=== PATIENT | female | born 1970 | race African-American/Black ===

== ENCOUNTER 2022-09-25 10:30 | Emergency (ER) | payer OTHER, MEDICAID, SELFPAY ==
[2022-09-25 10:41] VITALS: BP 115/76; PULSE 79; RESP 16; TEMP 36.2; O2SAT 96; BMI 25.8
--- NOTE | 2022-09-25 11:15 | CRLHL7_ITS ---
For Patients: As a result of the Century Cures Act, medical imaging exams and procedure reports are released immediately into your electronic medical record. You may view this report before your referring provider. If you have questions, please contact your health care provider. INDICATION: Abdomen pain. TECHNIQUE: CT abdomen and pelvis acquired with 83 mL Isovue 370 contrast. COMPARISON: CT abdomen/pelvis dated 09/12/2018. FINDINGS: Lower chest: No focal consolidation. Liver: No suspicious focal hepatic lesion. Gallbladder and bile ducts: Unremarkable. Pancreas: Unremarkable. Spleen: Unremarkable. Adrenal glands: Unremarkable. Kidneys: Kidneys enhance symmetrically, without hydronephrosis. Retroperitoneum: No lymphadenopathy. Bowel and mesentery: Bowel is not obstructed. Normal appendix. No significant ascites. Mild pericolonic inflammatory changes at the proximal sigmoid colon, compatible with mild colitis. Stomach is decompressed, suboptimally evaluated. No pneumoperitoneum. Bladder: Unremarkable for degree of distension. Reproductive organs: Intrauterine contraceptive device is noted. Pelvic lymph nodes: No lymphadenopathy. Vessels: Few scattered atherosclerotic calcifications. Abdominal wall: Postsurgical changes of prior ventral abdominal wall hernia repair. No acute abdominal wall abnormality. Bones: No suspicious/aggressive focal osseous lesion. IMPRESSION: 1. Mild short-segment colitis of the proximal sigmoid colon. 2. Bowel is not obstructed. Normal appendix. Please note that all CT scans at this facility use dose modulation, iterative reconstruction, and/or weight-based dosing when appropriate to reduce radiation dose to as low as reasonably achievable. Dictated by Kiesha Luciano MD @ 09/25/2022 1:38:02 PM (Electronically Signed)
--- NOTE | 2022-09-25 11:16 | ED_ITS ---
HPI - Abdominal Pain General Chief Complaint: Abdominal Pain Stated Complaint: Abdominal pain Time Seen by Provider: 09/25/22 10:51 History of Present Illness HPI narrative: This 51-year-old female comes in reporting abdominal pain that began this morning. She states that the pain comes and goes. She does not report any nausea, vomiting, fever, or dysuria. She did have small amount of diarrhea. 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 Related Data Home Medications Medication Instructions Recorded Confirmed albuterol sulfate 90 mcg/actuation 1 puff inhalation Q4H PRN 09/25/22 09/25/22 aerosol inhaler aripiprazole 2 mg tablet 2 mg PO DAILY 09/25/22 09/25/22 venlafaxine 150 mg 150 mg PO DAILY 09/25/22 09/25/22 capsule,extended release 24 hr Previous Rx's Medication Instructions Recorded ketorolac 10 mg tablet 10 mg PO Q8H 5 days #15 tabs 09/25/22 ondansetron HCl 4 mg tablet 4 mg PO Q6H #10 tabs 09/25/22 Allergies Allergy/AdvReac Type Severity Reaction Status Date / Time No Known Drug Allergies Allergy Verified 09/25/22 10:47 Review of Systems Status of ROS Reports: 10 or more systems reviewed and unremarkable except as noted in History and below Narrative Constitutional: No fevers, no weight gain or loss. Eyes: No discharge. No vision changes. HENT: No congestion, no sore throat, no ear pain. Cardiovascular: No chest pain, no palpitations. Respiratory: No shortness of breath, no wheezes, no cough. Gastrointestinal: No vomiting. Crampy abdominal pain as described above. Genitourinary: No dysuria, no hematuria. Musculoskeletal: Normal range of motion. Skin: No rashes, no pruritis. Neurological: No dizziness, weakness, sensory change, speech change. Endo/Heme/Allergies: No bruising or bleeding. No polydipsia. Pysch: no suicidality, no anxiety, no insomnia. All other systems reviewed and are negative. PFSH PFSH Social History Smoking Status: Never smoker Do you use any of these nicotine containing products: None Second hand tobacco smoke exposure: No How often do you have a drink containing alcohol: never How often do you have six or more drinks on one occasion: Never AUDIT-C Alcohol total score: 0 Non-prescribed substance use: denies use service: No Exam Narrative: Exam Narrative: Constitutional: Well-developed, well-nourished, no acute distress. HEENT: Normocephalic, atraumatic. Neck: Normal range of motion. Nontender. Supple. Heart: Regular. No murmurs. Normal rate. Intact distal pulses. Lungs: No chest discomfort. No rhonchi, or rales. Brief end expiratory wheeze in the right lung. Abdomen: Normal bowel sounds. Diffuse mild tenderness. No rebound tenderness. Genitalia: Deferred. Back: No midline tenderness. Normal range of motion. Extremities: Normal range of motion. No injury. Skin: Intact. No rash. Warm. No erythema or pallor. Neurologic: No altered sensation. No weakness. Alert and oriented. Psychiatric: No suicidality. No anxiety or depression. No insomnia. Nursing notes and vitals signs are reviewed. Const: Vital Signs, click to edit/add: Vital Signs - 24 hr 09/25/22 10:41 Temperature 97.2 F L Pulse Rate [Left P ulse Oximeter] 79 Respiratory Rate 16 Blood Pressure [Le ft Upper Arm] 115/76 Pulse Oximetry 96 Oxygen Delivery Me thod Room Air Course Vital Signs Vital signs: Initial Vital Signs Temperature 97.2 F L 09/25/22 10:41 Temperature Source Temporal Artery Scan 09/25/22 10:41 Pulse Rate 79 09/25/22 10:41 Respiratory Rate 16 09/25/22 10:41 Blood Pressure 115/76 09/25/22 10:41 Blood Pressure Mean 89 09/25/22 10:41 Blood Pressure Position Sitting 09/25/22 10:41 Pulse Oximetry 96 09/25/22 10:41 Oxygen Delivery Method 09/25/22 10:41 Vital Signs Temperature 97.2 F L 09/25/22 10:41 Pulse Rate 79 09/25/22 10:41 Respiratory Rate 16 09/25/22 10:41 Blood Pressure 115/76 09/25/22 10:41 Pulse Oximetry 96 09/25/22 10:41 Oxygen Delivery Method 09/25/22 10:41 Temperature 97.2 F L 09/25/22 10:41 Pulse Rate 79 09/25/22 10:41 Respiratory Rate 16 09/25/22 10:41 Blood Pressure 115/76 09/25/22 10:41 Pulse Oximetry 96 09/25/22 10:41 Oxygen Delivery Method 09/25/22 10:41 MDM - Abdominal Pain MDM Narrative Medical decision making narrative: This patient comes in with crampy mid abdominal pain that began this morning. She does have some nausea. Currently she is not having episodes of pain. She reports to me that her mother had colon cancer so she is getting colonoscopies regularly as indicated. These have been negative in their results. This however is triggering some of her fear regarding her symptoms. CT imaging of the abdomen and pelvis returns with reassuring findings. She does have some audra dence of mild colitis in the sigmoid colon. Results of the imaging and lab tests are communicated with the patient and she is reassured with these findings. She is okay to be discharged home and received a prescription for Toradol and Zofran. I advised her to follow-up with her primary physician as needed or return if worsening. Lab Data Labs: Lab Results 09/25/22 09/25/22 Range/Units 11:26 11:26 WBC 5.64 (4.50-11.00) K/uL RBC 4.07 (4.00-5.20) m/uL Hgb 12.8 (12.0-16.0) gm/dL Hct 39.5 (33.0-51.0) % MCV 97 (80-100) fL MCH 31 (26-34) pg MCHC 32 (32-36) gm/dL RDW Coeff of Dara 15.2 (11.5-15.5) % Plt Count 295 (140-440) K/uL Neut % (Auto) 65.0 (42.0-72.0) % Lymph % (Auto) 23.6 (20-44) % Mcclain % (Auto) 9.4 (0.0-11.0) % Eos % (Auto) 1.6 (0.0-7.0) % Baso % (Auto) 0.4 (0.0-3.0) % Neut # (Auto) 3.67 (1.7-7.0) K/uL Lymph # (Auto) 1.33 (0.90-2.90) K/uL Mcclain # (Auto) 0.50 (0.00-0.90) K/UL Eos # (Auto) 0.09 (0.00-0.50) K/uL Baso # (Auto) 0.02 (0.00-0.30) K/uL Sodium 139 (135-149) mmol/L Potassium 4.1 (3.6-5.1) mmol/L Chloride 106 (96-114) mmol/L Carbon Dioxide 33 H (20-32) mmol/L BUN 13 (7-30) mg/dL Creatinine 0.6 (0.5-1.5) mg/dL Estimated Creat Clear 113.16 Estimated GFR 109 ml/min Glucose 109 (60-115) mg/dL Calcium 8.9 (8.4-10.6) mg/dL Imaging Data CT scan - abdomen: Radiologist's impression: 1. Mild short-segment colitis of the proximal sigmoid colon. 2. Bowel is not obstructed. Normal appendix. Discharge Plan Discharge Clinical Impression: Abdominal pain Patient Disposition: Home, Self-Care Condition: Stable Additional Instructions: Take medication as needed and indicated. Follow up with MD or return if worsening symptoms happen. Prescriptions: New ondansetron HCl 4 mg tablet 4 mg PO Q6H Qty: 10 0RF ketorolac 10 mg tablet 10 mg PO Q8H 5 Days Qty: 15 0RF No Action albuterol sulfate 90 mcg/actuation HFA aerosol inhaler 1 puff INHALATION Q4H PRN Label Comments: Inhale 1-2 Puffs by mouth every 4 hours if needed for Shortness Of Breath. aripiprazole 2 mg tablet 2 mg PO DAILY Label Comments: TAKE ONE TABLET BY MOUTH ONE TIME DAILY venlafaxine 150 mg capsule,extended release 24hr 150 mg PO DAILY Label Comments: TAKE ONE CAPSULE BY MOUTH ONE TIME DAILY IN THE EVENING WITH FOOD Follow Up/Referrals: Renetta Geller MD [Primary Care Provider] - Stand Alone Forms: [employer] Info Instructions
[2022-09-25 11:31] LABS: Basophils Absolute Auto 0.02 K/uL (0.00-0.30); Basophils Percent Auto 0.4 % (0.0-3.0); Eosinophils Absolute Auto 0.09 K/uL (0.00-0.50); Eosinophils Percent Auto 1.6 % (0.0-7.0); Hematocrit 39.5 % (33.0-51.0); Hemoglobin* 12.8 gm/dL (12.0-16.0); Lymphocytes Absolute Auto 1.33 K/uL (0.90-2.90); Lymphocytes Percent Auto 23.6 % (20-44); Mean Corpuscular HGB Conc 32 gm/dL (32-36); Mean Corpuscular Hemoglobin 31 pg (26-34); Mean Corpuscular Volume 97 fL (80-100); Monocytes Percent Auto 9.4 % (0.0-11.0); Neutrophils Absolute Auto 3.67 K/uL (1.7-7.0); Platelet Count* 295 K/uL (140-440); RDW Coefficient of Variation % 15.2 % (11.5-15.5); Red Blood Count 4.07 m/uL (4.00-5.20); White Blood Count* 5.64 K/uL (4.50-11.00)
[2022-09-25 11:32] LABS: Slide Review Reflex No
[2022-09-25 11:46] LABS: Chloride* 106 mmol/L (96-114); Potassium* 4.1 mmol/L (3.6-5.1); Sodium* 139 mmol/L (135-149)
[2022-09-25 11:49] LABS: Blood Urea Nitrogen* 13 mg/dL (7-30); Carbon Dioxide* 33 mmol/L (20-32); Creatinine* 0.6 mg/dL (0.5-1.5); Est. Creatinine Clearance* 113.16; Estimated Glomerular Filt Rate 109 ml/min; Glucose* 109 mg/dL (60-115)
[2022-09-25 11:50] LABS: Calcium* 8.9 mg/dL (8.4-10.6)
[2022-09-25 14:10] VITALS: BP 126/94; PULSE 68; RESP 16; O2SAT 100
== END 2022-09-25 14:11 | disposition home or self-care (01) ==
PROVIDERS: Emergency Provider Emergency Medicine Emergency Medical Services; PCP Family Medicine
DX: R10.9 Unspecified abdominal pain (principal)
CPT/HCPCS: 36415; 74177; 80048; 85025; 99284; Q9967

== ENCOUNTER 2023-07-17 09:58 | Emergency (ER) | payer OTHER, MEDICAID, SELFPAY ==
[2023-07-17 10:16] VITALS: BP 132/80; PULSE 74; RESP 16; TEMP 36.5; O2SAT 99; BMI 24.3
--- NOTE | 2023-07-17 12:06 | ED.GENADULT ---
HPI - General Adult General Chief complaint: Skin/Abscess/Foreign Body Stated complaint: poss shingles Time Seen by Provider: 07/17/23 11:40 History of Present Illness HPI narrative: This 52-year-old female comes in with some erythema with pain along her left side that began a couple days ago. She does have a rash that runs along the dermatome of her left lower ribs. She does not report any other symptoms. She has not had a previous outbreak of shingles but did have chickenpox when she was younger. Related Data Home Medications Medication Instructions Recorded Confirmed albuterol sulfate 90 mcg/actuation 1 puff inhalation Q4H PRN 09/25/22 12/21/22 aerosol inhaler aripiprazole 2 mg tablet 2 mg PO DAILY 09/25/22 12/21/22 venlafaxine 150 mg 150 mg PO DAILY 09/25/22 07/17/23 capsule,extended release 24 hr Previous Rx's Medication Instructions Recorded ketorolac 10 mg tablet 10 mg PO Q8H 5 days #15 tabs 09/25/22 ondansetron HCl 4 mg tablet 4 mg PO Q6H #10 tabs 09/25/22 ketorolac 10 mg tablet 10 mg PO Q8H 5 days #15 tabs 07/17/23 polymyxin B sulfate 10,000 1 drp ophthalmic (eye) Q3H 7 days 07/17/23 unit-trimethoprim 1 mg/mL eye drops #10 mL valacyclovir 1 gram tablet 1,000 mg PO TID #15 tabs 07/17/23 (Valtrex) Allergies Allergy/AdvReac Type Severity Reaction Status Date / Time No Known Drug Allergies Allergy Verified 09/25/22 10:47 Review of Systems Status of ROS: Reports: 10 or more systems reviewed and unremarkable except as noted in History and below Narrative: Constitutional: No fevers, no weight gain or loss. Eyes: No vision changes. She reports discharge from both eyes this morning. HENT: No congestion, no sore throat, no ear pain. Cardiovascular: No chest pain, no palpitations. Respiratory: No shortness of breath, no wheezes, no cough. Gastrointestinal: No abdominal pain, no vomiting, no diarrhea. Genitourinary: No dysuria, no hematuria. Musculoskeletal: Normal range of motion. Skin: Itchy painful rash along the left lower ribs as described above. Neurological: No dizziness, weakness, sensory change, speech change. Endo/Heme/Allergies: No bruising or bleeding. No polydipsia. Pysch: no suicidality, no anxiety, no insomnia. All other systems reviewed and are negative. [facility] Social History Smoking Status: Never smoker Do you use any of these nicotine containing products: None Second hand tobacco smoke exposure: No How often do you have a drink containing alcohol: never How often do you have six or more drinks on one occasion: Never AUDIT-C Alcohol total score: 0 Non-prescribed substance use: denies use service: No Exam Narrative: Exam Narrative: Constitutional: Well-developed, well-nourished, no acute distress. HEENT: Normocephalic, atraumatic. Eyes appear normal bilaterally. Neck: Normal range of motion. Nontender. Supple. Heart: Regular. No murmurs. Normal rate. Intact distal pulses. Lungs: Clear to auscultation. No chest discomfort. No wheezes, rhonchi, or rales. Abdomen: Normal bowel sounds. Nontender. No rebound tenderness. Genitalia: Deferred. Back: No midline tenderness. Normal range of motion. Extremities: Normal range of motion. No injury. Skin: Intact. Warm. Erythema extending from her back at the midline around the lower ribs almost to the midline in front typical of shingles. There are no vesicles but it does appear that some a form in the future. Neurologic: No altered sensation. No weakness. Alert and oriented. Psychiatric: No suicidality. No anxiety or depression. No insomnia. Nursing notes and vitals signs are reviewed. Const: Vital Signs, click to edit/add: Vital Signs - 24 hr 07/17/23 10:16 Temperature 97.7 F Pulse Rate [Pulse Oximeter] 74 Respiratory Rate 16 Blood Pressure [Le ft Upper Arm] 132/80 Pulse Oximetry 99 Oxygen Delivery Me thod Room Air Course Vital Signs Vital signs: Initial Vital Signs Temperature 97.7 F 07/17/23 10:16 Temperature Source Temporal Artery Scan 07/17/23 10:16 Pulse Rate 74 07/17/23 10:16 Respiratory Rate 16 07/17/23 10:16 Blood Pressure 132/80 07/17/23 10:16 Blood Pressure Mean 97 07/17/23 10:16 Blood Pressure Position Sitting 07/17/23 10:16 Pulse Oximetry 99 07/17/23 10:16 Oxygen Delivery Method Room Air 07/17/23 10:16 Vital Signs Temperature 97.7 F 07/17/23 10:16 Pulse Rate 74 07/17/23 10:16 Respiratory Rate 16 07/17/23 10:16 Blood Pressure 132/80 07/17/23 10:16 Pulse Oximetry 99 07/17/23 10:16 Oxygen Delivery Method Room Air 07/17/23 10:16 Temperature 97.7 F 07/17/23 10:16 Pulse Rate 74 07/17/23 10:16 Respiratory Rate 16 07/17/23 10:16 Blood Pressure 132/80 07/17/23 10:16 Pulse Oximetry 99 07/17/23 10:16 Oxygen Delivery Method Room Air 07/17/23 10:16 Medical Decision Making MDM Narrative Medical decision making narrative: This 52-year-old female comes in with symptoms typical of shingles. Her symptoms started about 2 days ago. She did received prescription for Valtrex and Toradol. She is also reporting matting in discharge from both her eyes this morning. I did provide a prescription for Polytrim. Currently her eyes are not showing any sign of discharge or erythema. Discharge Plan Discharge Additional Instructions: Take medications as prescribed. Follow up with MD or return if worsening. Prescriptions: New valacyclovir [Valtrex] 1 gram tablet 1,000 mg PO TID Qty: 15 2RF ketorolac 10 mg tablet 10 mg PO Q8H 5 Days Qty: 15 0RF polymyxin B sulf-trimethoprim 10,000 unit- 1 mg/mL drops 1 drp ophthalmic (eye) Q3H 7 Days Qty: 10 0RF Rx Instructions: while awake; do not exceed 6 doses in 24 hours No Action albuterol sulfate 90 mcg/actuation HFA aerosol inhaler 1 puff INHALATION Q4H PRN Patient Comments: Inhale 1-2 Puffs by mouth every 4 hours if needed for Shortness Of Breath. aripiprazole 2 mg tablet 2 mg PO DAILY Patient Comments: TAKE ONE TABLET BY MOUTH ONE TIME DAILY venlafaxine 150 mg capsule,extended release 24hr 150 mg PO DAILY Patient Comments: TAKE ONE CAPSULE BY MOUTH ONE TIME DAILY IN THE EVENING WITH FOOD ondansetron HCl 4 mg tablet 4 mg PO Q6H Qty: 10 0RF ketorolac 10 mg tablet 10 mg PO Q8H 5 Days Qty: 15 0RF Follow Up/Referrals: Renetta Geller MD [Primary Care Provider] - Stand Alone Forms: [employer] Info Instructions
[2023-07-17 12:27] VITALS: BP 133/90; PULSE 73; O2SAT 98
== END 2023-07-17 12:33 | disposition home or self-care (01) ==
LOC: ED 12:07
PROVIDERS: Emergency Provider Emergency Medicine Emergency Medical Services; PCP Family Medicine
DX: B02.9 Zoster without complications (principal)
CPT/HCPCS: 99283; 99284

== ENCOUNTER 2023-09-15 12:44 | Emergency (ER) | payer OTHER, MEDICAID, SELFPAY ==
[2023-09-15 12:50] VITALS: BP 127/86; PULSE 99; RESP 16; TEMP 36.7; O2SAT 98; BMI 24.3
--- NOTE | 2023-09-15 13:32 | XR_ITS ---
Patient: AVELINA CARD Facility:?[facility] Patient ID:?[id number] Site Patient ID:?[id number]. Site :?[id number] Study:?XRay-Extremity Right Wrist 3v-09/15/2023 1:57:13 PM Ordering Physician:?Marck Barnes Final Report: Indication: Fall onto wrist, can not bend Technique: AP lateral and oblique right wrist, three views Comparison: None Findings: No fracture or acute dislocation. Wide scapholunate interval measures 5 millimeters. Slightly oblique lateral view. There may be some minimal proximal migration of the capitate but there is not a carmenza scapholunate advanced collapse or DISI deformity. There are several well circumscribed lucent lesions in the carpal bones that are probably intraosseous ganglia. 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 Soft tissue swelling around the wrist. No foreign body. 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 No definitely acute findings seen in the right wrist. Dictated by Katey Stanley MD @ 09/15/2023 2:10:48 PM Signed by:?Katey Stanley MD @09/15/2023 2:10:48 PM (Electronic Signature)
--- NOTE | 2023-09-15 14:35 | ED.UPPEXIN ---
HPI - Extremity Injury (Upper) General Date Seen: 09/15/23 Chief Complaint: Extremity Pain/Injury, Upper Stated Complaint: R wrist break Time Seen by Provider: 09/15/23 13:13 Source: patient Mode of arrival: ambulatory Limitations: no limitations History of Present Illness HPI narrative: Patient is a 52-year-old female presenting for right wrist pain. She states yesterday she tripped over dog leash landing on her right hand. She said it was sore or was tolerable. Today she woke up and noticed the pain was worse and she has pain with movement of the hand. Denies any numbness or weakness low. She cannot make a full fist due to pain but is able to wiggle her fingers without issues. Has not taking anything for pain. She says the pain is tolerable and to not feel like she needed anything. Denies injuries to this hand before. No other concerns at this time Related Data Home Medications Medication Instructions Recorded Confirmed albuterol sulfate 90 mcg/actuation 1 puff inhalation Q4H PRN 09/25/22 12/21/22 aerosol inhaler aripiprazole 2 mg tablet 2 mg PO DAILY 09/25/22 12/21/22 venlafaxine 150 mg 150 mg PO DAILY 09/25/22 07/17/23 capsule,extended release 24 hr Previous Rx's Medication Instructions Recorded ketorolac 10 mg tablet 10 mg PO Q8H 5 days #15 tabs 09/25/22 ondansetron HCl 4 mg tablet 4 mg PO Q6H #10 tabs 09/25/22 ketorolac 10 mg tablet 10 mg PO Q8H 5 days #15 tabs 07/17/23 polymyxin B sulfate 10,000 1 drp ophthalmic (eye) Q3H 7 days 07/17/23 unit-trimethoprim 1 mg/mL eye drops #10 mL valacyclovir 1 gram tablet 1,000 mg PO TID #15 tabs 07/17/23 (Valtrex) Allergies Allergy/AdvReac Type Severity Reaction Status Date / Time No Known Drug Allergies Allergy Verified 09/15/23 12:55 Review of Systems Narrative: Pertinent systems reviewed and were negative unless stated in HPI PFSH PFSH Social History Smoking Status: Never smoker Do you use any of these nicotine containing products: None Second hand tobacco smoke exposure: No How often do you have a drink containing alcohol: never How often do you have six or more drinks on one occasion: Never AUDIT-C Alcohol total score: 0 Non-prescribed substance use: denies use service: No Exam Narrative: Exam Narrative: Const: Well-nourished, Well-developed, in mild distress Eyes: PERRL, no conjunctival injection, and symmetrical lids HENT: Atraumatic external nose and ears. Moist mucous membranes. MSK: Swelling to right hand tenderness to palpation, mild decreased movement to right hand secondary to pain, able to wiggle fingers without issue but cannot make a tight fist Skin: Warm, Dry. No rashes or lesions. Neuro: Normal Muscle tone, No focal neurological deficits. Psych: Awake, Alert, & Oriented x3. Appropriate mood and affect. Const: Vital Signs, click to edit/add: Vital Signs - 24 hr 09/15/23 12:50 Temperature 98.0 F Pulse Rate [Right Pulse Oximeter] 99 Respiratory Rate 16 Blood Pressure [Ri ght Upper Arm] 127/86 Pulse Oximetry 98 Oxygen Delivery Me thod Room Air Course Vital Signs Vital signs: Initial Vital Signs Temperature 98.0 F 09/15/23 12:50 Temperature Source Temporal Artery Scan 09/15/23 12:50 Pulse Rate 99 09/15/23 12:50 Pulse Rhythm Regular 09/15/23 12:50 Pulse Strength 3+ Normal 09/15/23 12:50 Respiratory Rate 16 09/15/23 12:50 Blood Pressure 127/86 09/15/23 12:50 Blood Pressure Mean 99 09/15/23 12:50 Blood Pressure Position Sitting 09/15/23 12:50 Pulse Oximetry 98 09/15/23 12:50 Oxygen Delivery Method Room Air 09/15/23 12:50 Vital Signs Temperature 98.0 F 09/15/23 12:50 Pulse Rate 99 09/15/23 12:50 Respiratory Rate 16 09/15/23 12:50 Blood Pressure 127/86 09/15/23 12:50 Pulse Oximetry 98 09/15/23 12:50 Oxygen Delivery Method Room Air 09/15/23 12:50 Temperature 98.0 F 09/15/23 12:50 Pulse Rate 99 09/15/23 12:50 Respiratory Rate 16 09/15/23 12:50 Blood Pressure 127/86 09/15/23 12:50 Pulse Oximetry 98 09/15/23 12:50 Oxygen Delivery Method Room Air 09/15/23 12:50 MDM - Extremity Injury (Upper) MDM Narrative Medical decision making narrative: Patient is a 52-year-old female presenting for right wrist pain. She is neurovascular intact at this time. She has tenderness at the anatomical snuffbox. We will do an x-ray of the right wrist. She is not requesting pain medicine at this time. X-ray reviewed and shows some widened scapholunate junction that is likely secondary to a chronic scapholunate tear. Considering where her pain is I will place her in a thumb spica splint and have a follow-up with Orthopedics as I cannot definitively rule out a scaphoid fracture.. She is agreeable to this plan. 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 No definitely acute findings seen in the right wrist. Dictated by Katey Stanley MD @ 09/15/2023 2:10:48 PM Discharge Plan Discharge Clinical Impression: Right wrist pain Patient Disposition: Home, Self-Care Condition: Stable Instructions: Wrist Injury (ED) Additional Instructions: No fractures were seen on your x-ray but I cannot definitively rule out a fracture of your scaphoid bone of your wrist. I placed you in a thumb spica splint. Follow-up with orthopedics in 1 week for re-evaluation of the wrist. Prescriptions: No Action albuterol sulfate 90 mcg/actuation HFA aerosol inhaler 1 puff INHALATION Q4H PRN Patient Comments: Inhale 1-2 Puffs by mouth every 4 hours if needed for Shortness Of Breath. aripiprazole 2 mg tablet 2 mg PO DAILY Patient Comments: TAKE ONE TABLET BY MOUTH ONE TIME DAILY venlafaxine 150 mg capsule,extended release 24hr 150 mg PO DAILY Patient Comments: TAKE ONE CAPSULE BY MOUTH ONE TIME DAILY IN THE EVENING WITH FOOD ondansetron HCl 4 mg tablet 4 mg PO Q6H Qty: 10 0RF ketorolac 10 mg tablet 10 mg PO Q8H 5 Days Qty: 15 0RF valacyclovir [Valtrex] 1 gram tablet 1,000 mg PO TID Qty: 15 2RF ketorolac 10 mg tablet 10 mg PO Q8H 5 Days Qty: 15 0RF polymyxin B sulf-trimethoprim 10,000 unit- 1 mg/mL drops 1 drp ophthalmic (eye) Q3H 7 Days Qty: 10 0RF Rx Instructions: while awake; do not exceed 6 doses in 24 hours Follow Up/Referrals: Renetta Geller MD [Primary Care Provider] - Stand Alone Forms: [employer] Info Instructions
== END 2023-09-15 14:42 | disposition home or self-care (01) ==
PROVIDERS: Emergency Provider Student in an Organized Health Care Education/Training Program; PCP Family Medicine
DX: M25.531 Pain in right wrist (principal)
CPT/HCPCS: 73110; 99282; 99283

== ENCOUNTER 2024-11-09 11:40 | Emergency (ER) | payer OTHER, MEDICAID, SELFPAY ==
--- OUTSIDE RECORDS SUMMARY | 2024-11-09 11:43 | XMS_ITS | Encounter Summary ---
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 Name Role Phone No Primary/Referring, Phy Primary Care Provider Unavailable Encounter Details Date Type Department Care Team (Late st Contact Info) Description 05/05/2019 Consent for Procedure/Treatme nt [facility] INFORMED CONSENT NEUROLEPTIC MEDICATIONS Social History Tobacco Use Types Packs/Day Years Used Date Smoking Tobacco: Never Assessed Comments Unknown Sex and Gender Information Value Date Recorded Sex Assigned at Not on file Legal Sex Female 8:37 PM CDT Gender Identity Not on file Sexual Orientation Not on file documented as of this encounter Plan of Treatment Not on file documented as of this encounter Visit Diagnoses Not on filedocumented in this encounter Care Teams Textiles And Clothing Teacher Relationship Specialty Start Date End Date No Primary/ReferringMohit PCP - General 05/05/19 documented as of this encounter
--- OUTSIDE RECORDS SUMMARY | 2024-11-09 11:43 | XMS_ITS | Encounter Summary ---
Author Organization [facility] Address [address] [place] [address] Care Team Providers Care Laboratory Animal Facility Supervisor Name Role Phone No Primary/Referring, Phy Primary Care Provider Unavailable Encounter Details Date Type Department Care Team (Late st Contact Info) Description 06/04/2019 [facility] RH USE OF RESTRAINTS/ALTERNATIVES PATIENT/FAMILY ED Social History Tobacco Use Types Packs/Day Years Used Date Smoking Tobacco: Every Day Smokeless Tobacco: Never Comments Unknown Sex and Gender Information Value Date Recorded Sex Assigned at Not on file Legal Sex Female 8:37 PM CDT Gender Identity Not on file Sexual Orientation Not on file documented as of this encounter Plan of Treatment Not on file documented as of this encounter Visit Diagnoses Not on filedocumented in this encounter Care Teams Laboratory Animal Facility Supervisor Relationship Specialty Start Date End Date No Primary/ReferringMohit PCP - General 05/05/19 documented as of this encounter
--- OUTSIDE RECORDS SUMMARY | 2024-11-09 11:43 | XMS_ITS | Clinical Summary ---
Author Organization [employer] [facility] Address [address] [place] [address] Care Team Providers Care Digitizer Name Role Phone Renetta Geller MD Primary Care Provide r Allergies No known active allergies Medications inhalational spacing deviceIndication s:Acute bronchitis with bronchospasm For home use. 1 Each 3 Active albuterol HFA (PRO-AIR; VENTOLIN; PROVENTIL) 90 mcg/actuation inhalerIndicatio ns:Acute bronchitis with bronchospasm Inhale 1 Puff by mouth every 4 hours if needed for Shortness Of Breath or Wheezing. 8.5 g 1 4 Active venlafaxine (EFFEXOR XR) 150 mg Extended-Release capsuleIndicatio ns:Major depressive disorder, recurrent, moderate (HC) TAKE ONE CAPSULE BY MOUTH ONE TIME DAILY IN THE EVENING WITH FOOD 90 Capsule 5 Active azithromycin (Zithromax Z-Reji) 250 mg tabletIndication s:Acute bronchitis with bronchospasm Take 500 mg (2 tabs) by mouth on day 1, then 250 mg (1 tab) daily for days 2-5. 6 Tablet 4 11/07/19 25 Discontin ued(*Rosa ent states no longer taking) Hospital, Clinic, or Other Facility Administered Medication Ordered Dose Route Frequency Start Date End Date Status levonorgestrel intrauterine device (MIRENA) 1 DeviceIndications:Encounter for IUD insertion 1 Device IU Q 5 YEARS 09/26/2019 Active Active Problems Problem Noted Date Diagnosed Date Mass of right upper extremity 03/12/2024 Overview (03/12/2024): Ultrasound 03/12/24 Suspected small superficial soft tissue hematoma measures up to 5 mm. Continued attention to this on clinical and imaging follow-up would be recommended, as indicated. Ventral hernia without obstruction or gangrene 0 11/01/2021 Alcohol abuse, episodic drinking behavior 2020 Adenomatous colon polyp 10/02/2018 Overview (11/01/2021): Colonoscopy 09/2018 polyp, repeat in 5 years Colonoscopy 09/2018 polyp, repeat in 5 years At risk for domestic violence 11/16/2016 Cervical radicular pain 12/22/2014 Prolonged depressive reaction 03/12/2014 Family history of malignant neoplasm of gastrointestinal tract 11/21/2012 Overview (11/01/2021): Mother with colon cancer at age 70 Colonoscopy 11/2012 normal repeat in 5 years Mother with colon cancer at age 70 Colonoscopy 11/2012 normal repeat in 5 years Tobacco use disorder 11/25/2009 Generalized anxiety disorder Moderate episode of recurrent major depressive d isorder Gastritis Polyp of colon Resolved Problems Problem Noted Date Diagnosed Date Resolved Date Borderline personality disorder 01/30/2021 10/12/2022 Encounters Date Type Department Care Team Description 11/09/2024 Nurse Triage [facility] [address] [place] [address] Renetta Geller MD Knee Injury 11/07/2024 1:00 PM CDT Ancillary Procedure [facility] [address] [place] [address] Arrived 11/07/2024 Travel 11/06/2024 2:30 PM CDT Telemedicine [facility] [address] [phone] Jil De Luna NP Telehealth; Knee Injury 09/26/2024 Orders Only [facility] Scanner 1 scan: (1-Ord) [facility] 08/12/2024 Refill [facility] [address] [place] [address] Renetta Geller MD Refill Request (Venlafaxine) from Last 3 Months Immunizations Immunization Administration Dates Next Due AMB Influenza, IIV3 (Age >=3 years)(Flu Clinic Only) 06/05/2008 AMB Influenza, IIV4 PF (=>6 mos Flulaval,Fluzone Fluarix)(Flu Clinic Only) 05/10/2018,07/01/2014 COVID-19 VACCINE SPIKEVAX (M ODERNA 50MCG/0.5ML) 12YO+ PFS 07/14/2024,09/17/2023 COVID-19 vaccine (Moderna 100mcg/0.5mL) PF, MDV 12/08/2020,11/10/2020 COVID-19 vaccine (Moderna Drew karuna 50mcg/0.25mL) PF, MDV 08/18/2021 COVID-19 vaccine (MagazinoBio NTech 30mcg/0.3mL) 12YO+ BIVALENT PF, MDV 04/28/2022 INFLUENZA, IIV3 PF (AGE >= 6 MO) 07/14/2024 Influenza, IIV3 (Age >=3 years) 06/03/2012,07/01 Influenza, IIV4 09/17/2023,,10/01/2020,2018,06/26/2017,06/30/2015 MMR 11/29/2010 Pneumococcal Conj 20-valent (Prevnar 20) 09/17/2023 Td (Age >=7 Years) 04/06/2004 Tdap 02/17/2021,11/29/2010 Family History Medical History Relation Name Comments Cancer-prostate Father Cancer-colon Mother age 75 Esophageal cancer Paternal Uncle Cervical cancer Sister Cancer-breast No Family History Cancer-ovarian No Family History Relation Name Status Comments Father Mother Paternal Uncle Alive Sister Social History Tobacco Use Types Packs/Day Years Used Date Smoking Tobacco: Every Day Cigarettes 0.5 6.3 Started: 2018 Smokeless Tobacco: Never Tobacco Cessation:Ready to Q uit: No; Counseling Given: No Comments:10 cigs per day Alcohol Use Standard Drinks/Week Comments Yes 0 (1 standard drink = 0.6 oz pur e alcohol) 4-5 a week PHQ-2 Answer Date Recorded PHQ-2 TOTAL SCORE 2 08/10/2023 Social Connections Answer Date Recorded Do you often feel lonely or isolated from those around you? 0 06/06/2024 Financial Resource Strain Answer Date R ecorded Difficulty of Paying Living Expenses 2 06/06/2024 Difficulty of Paying Living Expenses 1 06/06/2024 Food Insecurity Answer Date Recorded Do you worry your food will run out before you are able to buy more? 2 06/06/2024 Transportation Needs Answer Date Record ed Does lack of transportation keep you from medica l appointments? 1 06/06/2024 Does lack of transportation keep you from work, meetings or getting things that you need? 1 06/06/2024 Housing Stability Answer Date Recorded What is your housing situation today? 1 06/06/2024 Utilities Answer Date Recorded Do you have trouble paying f or utilities (for example, heat, electricity, water, phone)? 1 06/06/2024 Comments No Sex and Gender Information Value Date Recorded Sex Assigned at Not on file Legal Sex Female 6:16 AM PUBLIC INFORMATION SPECIALIST Gender Identity Not on file Sexual Orientation Not on file Obstetrics History Para Term AB IAB SAB Ectopic Multiple Livin g Live Births 1 1 1 0 0 0 0 0 1 Date Outcome GA Total Labor Labor/2nd/3rd Weight Sex Type Anes PTL Erin A1 A5 Name Clin Term Last Filed Vital Signs Vital Sign Reading Time Taken Comments Blood Pressure 110/69 06/06/2024 1:20 PM PUBLIC INFORMATION SPECIALIST Pulse 106 06/06/2024 1:20 PM PUBLIC INFORMATION SPECIALIST Temperature 37 C (98.6 F) 12/12/2023 1:47 PM CDT Respiratory Rate 16 06/08/2023 10:04 AM PUBLIC INFORMATION SPECIALIST Oxygen Saturation 95% 06/06/2024 1:20 PM PUBLIC INFORMATION SPECIALIST Inhaled Oxygen Concentration - - Weight 75 kg (165 lb 6.4 oz) 06/06/2024 1:20 PM PUBLIC INFORMATION SPECIALIST Height 172.7 cm (5' 8) 11/27/2022 1:49 PM CDT Body Mass Index 25.15 11/27/2022 1:49 PM CDT Plan of Treatment Upcoming Encounters Date Type Department Care Team (Late st Contact Info) Description 11/10/2024 8:00 AM CDT Orders Only [facility] [address] [place] [address] 11/11/2024 7:50 AM CDT Office Visit [facility] [address] [place] [address] Reno Olivares MD [address] [place] [address] Health Maintenance Due Date Last Done Comments Zoster (shingles) series for age 50+ (1 of 2) 12/18/2021 Mammogram for age 45-75 06/12/2023 06/12/20 22, 02/22/2021, 08/16/2018, Additional history exists Pap test for age 21-65 09/24/2023 9, 09/23/2018, 06/26/2017, Additional history exists BMI (ht and wt on same day) for age 18+ 11/08/2023 11/07/2022, 04/28/2022, 05/19/2021, Additional history exists Depression screening for age 12+ 08/10/2024 08/10/2023, 04/28/2022, 04/27/2021, Additional history exists Lipids for age 45-75 04/28/2027 04/28/2022, 05/10/2017, 08/16/2006, Additional history exists Colonoscopy through age 75 11/28/202711/27, 10/01/2018, 10/01/2018, Additional history exists Tetanus booster 02/17/2031 02/17/2021, 11/20, 04/06/2004 Hepatitis C screening for ag e 18-79 Completed 02/17/2021, 09/28/2020, 02/26/2020, Additional history exists Tdap Completed 02/17/2021, 11/29/2010 HIV for age 15-65 Completed 02/22/2023, , 11/01/2021, Additional history exists Pneumococcal series for age 50+ Completed COVID-19 vaccine series Completed 07/14/20 24, 09/17/2023, 04/28/2022, Additional history exists Influenza Vaccine Completed 07/14/2024, , 04/28/2022, Additional history exists Procedures Procedure Name Priority Date/Time Associated Diagnosis Comments XR KNEE 3 VIEWS RIGHT ALFONZO 11/07/2024 1:09 PM CDT Leg injury, right, initial encounter Accidental fall, initial encounter Acute pain of right knee SCAN-EYE EXAM 09/26/2024 12:00 AM PUBLIC INFORMATION SPECIALIST LC HIV-1/O/2, 4TH GENERATION Routine 02/22/2023 8:23 AM CDT Screening for STDs (sexually transmitted diseases) COLONOSCOPY 11/27/2022 2:15 PM CDT XR MAMMO BILAT SCREENING Routine 06/12/2022 8:39 AM PUBLIC INFORMATION SPECIALIST Visit for screening mammogram LIPID PANEL W REFLEX MEASURED LDL Routine 04/28/2022 9:17 AM CDT Lipid screening ANTI HCV Routine 02/17/2021 10:07 AM CDT Screening examination for STD (sexually transmitted disease) FOOD AND BEVERAGE MANAGER THIN PREP PAP SCREEN IMAGED Routine 09/23/2018 12:00 PM PUBLIC INFORMATION SPECIALIST from Last 3 Months or Most Recently Relevant to Health Maintenance Results * XR KNEE 3 VIEWS RIGHT (11/07/2024 1:09 PM CDT) Anatomical Region Laterality Modality KNEES, KNEE R Computed Radiogr aphy 11/07/2024 1:33 PM CDT Narrative 11/07/2024 1:33 PM CDT For Patients: As a result of the Century Cures Act, medical imaging exams and procedure reports are released immediately into your electronic medical record. You may view this report before your referring provider. If you have questions, please contact your health care provider. Indication: Injury. Technique: Right knee 3 views. Comparison: None. Findings/ Impression: Mild lateral subluxation of patella is identified on the sunrise view, correlate for transient patellar dislocation. No acute fracture. 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 Small knee joint effusion is present. No localized soft tissue swelling. Dictated by Fabiana Strange MD @ 11/07/2024 1:33:28 PM (Electronically Signed) Procedure Note Fabiana Strange MD - 11/07/2024 For Patients: As a result of the Cures Act, medical imagingexams and procedure reports are released immediately into your electronicmedical record. You may view this report before your referring provider.If you have questions, please contact your health care provider. Indication: Injury. Technique: Right knee 3 views. Comparison: None. Findings/ Impression: Mild lateral subluxation of patella is identified on the sunrise view,correlate for transient patellar dislocation. No acute fracture. 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 Small kneejoint effusion is present. No localized soft tissue swelling. Dictated by Fabiana Strange MD @ 11/07/2024 1:33:28 PM (Electronically Signed) us iJl De Luna NP GENERAL IMAGING Final Re sult * SCAN-EYE EXAM (09/26/2024 12:00 AM PUBLIC INFORMATION SPECIALIST) us Scanner OTHER Final Result * LC HIV-1/O/2, 4TH GENERATION (02/22/2023 8:23 AM CDT) HIV Scr 4th Gen Non Reactive Non Reactive 02/24/2023 11:08 AM CDT [facility] Comment: HIV Negative HIV-1/HIV-2 antibodies and HIV-1 p24 antigen were NOT detected. There is no laboratory evidence of HIV infection. Blood BLOOD SPECIMEN / Unknown Venipuncture / Unknown 02/22/2023 8:23 AM CDT 02/22/2023 8:23 AM CDT Narrative [facility] ([facility]) - 02/24/2023 11:08 AM CDT Performed at: - [facility] [address] [facility], [place], [place] [id number] Toy Department Manager: Brock Park MD, Phone: [phone] [facility] Final Result [facility] ([facility]) [facility] [place] [address], [place] * COLONOSCOPY (11/27/2022 2:15 PM CDT) 11/27/2022 2:15 PM CDT Narrative Transcriptions Sreekanth Young MD - 11/27/2022 2:45 PM CDT Endoscopy Patient Name: Dafne Conde Procedure Date: 11/27/2022 Gender: Female Date of : 1970 Admit Type: Outpatient Procedure: Colonoscopy Proceduralist: Sreekanth Young MD [facility] Referring MD: Marleny Aguilar Indications/Pre-Op Diagnosis: High risk colon cancer surveillance:Personal history of non-advanced adenoma. CT scan in September with focal sigmoid colitis Medications: Monitored Anesthesia Care Procedure Description: The patient had risks, benefits and alternatives explained to andgave informed consent. The patient had a stable cardiopulmonary status and judged an adequate candidate for conscious sedation. The endoscope was passed through the anus and advanced to the cecum, identified by appendiceal orifice and ileocecal valve. Thecolonoscopy was performed without difficulty. The patient tolerated the procedure well. The quality of the bowel preparation was good. Complications: No immediate complications. Estimated Blood Loss & Specimen: Estimated blood loss: none. Specimen collected: Yes and sent to Laboratory Findings: Normal mucosa was found in the entire colon. The previous sigmoid colitis appreciated with CT scan in September has completely resolved A 3 mm polyp was found in the sigmoid colon. The polyp wassemi-sessile. The polyp was removed with a cold biopsy forceps. Resection and retrieval were complete. Internal hemorrhoids were found during retroflexion. The hemorrhoids were Grade II (internal hemorrhoids that prolapse but reduce spontaneously). The exam was otherwise without abnormality. Impressions/Post-Op Diagnosis: - Normal mucosa in the entire examined colon. - One 3 mm polyp in the sigmoid colon, removed with a cold biopsy forceps. Resected and retrieved. - Internal hemorrhoids. - The examination was otherwise normal. Recommendation: - Await pathology results. - High fiber diet Sreekanth Young MD 11/27/2022 2:45:38 PM This report has been signed electronically. Note Initiated On: 11/27/2022 2:15 PM Total Procedure Duration Time 0 hours 8 minutes 58 seconds Scope Withdrawal Time 0 hours 6 minutes 11 seconds us Sreekanth Young MD PROCEDURE ORD Final Res ult * XR MAMMO BILAT SCREENING (06/12/2022 8:39 AM PUBLIC INFORMATION SPECIALIST) Anatomical Region Laterality Modality BREASTS, Breast Left, Breast Right Bilateral Mammography Impressions 06/12/2022 1:51 PM PUBLIC INFORMATION SPECIALIST There is no radiographic evidence for malignancy. Recommend annual mammograms. MAMMOGRAM ASSESSMENT: ACR 1 Negative PATIENTS: You will also receive a letter with your examination results in an easy to read format. If you have questions about your results, please contact your referring provider. Narrative 06/12/2022 1:51 PM PUBLIC INFORMATION SPECIALIST For Patients: As a result of the Century Cures Act, medical imaging exams and procedure reports are released immediately into your electronic medical record. You may view this report before your referring provider. If you have questions, please contact your health care provider. XR MAMMO BILAT SCREENING [[id number]] CLINICAL HISTORY: This is an asymptomatic 51 y.o. patient. INDICATION FOR EXAM: Mammogram Screening. TECHNIQUE: CC & MLO views were obtained. This study was evaluated with the assistance of Computer-Aided Detection. COMPARISON FILM: Yes 02/22/21 [facility] [employer] 08/16/18 [facility] FINDINGS: The breasts have scattered areas of fibroglandular density. There are no dominant masses, suspicious micro calcifications or areas of architectural distortion. us Renetta Geller MD MAMMO Final Result * LIPID PANEL W REFLEX MEASURED LDL (04/28/2022 9:17 AM CDT) CHOLESTEROL,TOTAL 174 100 - 199 mg/dL 04/29/2022 7:56 AM CDT [facility] TRIGLYCERIDES 62 <150 mg/dL 04/29/2022 7:56 AM CDT [facility] HDL CHOLESTEROL 66 >40 mg/dL 7:56 AM CDT [facility] NON-HDL CHOLESTEROL 108 <145 mg/dl 04/29/2022 7:56 AM CDT [facility] CHOL/HDL RATIO 2.64 <4.50 04/29/2022 7:56 AM CDT [facility] LDL CHOLESTEROL 96 <=130 mg/dL 04/29/2022 7:56 AM CDT [facility] VLDL CHOLESTEROL 12 <=30 mg/dL 04/29/2022 7:56 AM CDT [facility] PROVIDER ORDERED STATUS RANDOM 04/29/2022 7:56 AM CDT [facility] Blood BLOOD SPECIMEN / Unknown Venipuncture / Unknown 04/28/2022 9:17 AM CDT 04/28/2022 9:17 AM CDT us Kimberly Steel MD CHEMISTRY Final Resul t [facility] [address] [place] [address], [place] [facility] [address] [id number], [place] [phone] * ANTI HCV (02/17/2021 10:07 AM CDT) HEPATITIS C ANTIBODY Non-React brenna Non-React brenna 02/17/2021 5:05 PM CDT [facility] Comment:Antibodies to HCV no t detected; does not exclude the possibility of exposure to HCV. Blood BLOOD SPECIMEN / Unknown Venipuncture / Unknown 02/17/2021 10:07 AM CDT 02/17/2021 10:09 AM CDT Renetta Geller MD SEND OUTS Final Result [facility] [address] [place] [address], [place] * FOOD AND BEVERAGE MANAGER THIN PREP PAP SCREEN IMAGED (09/23/2018 12:00 PM PUBLIC INFORMATION SPECIALIST) Case Report Gynecologic Cytology Report Case: [id number] Authorizing Provider: Amelia Nichols Collected: 09/23/2018 1200 MD Jack Ordering Location: [facility] Received: 09/25/2018 1335 First Screen: Anitha Giang Specimen: FOOD AND BEVERAGE MANAGER ThinPrep Vial Screening, Cervical/Vaginal 09/30/2018 10:23 AM CDT [facility] [employer] [facility] INTERPRETATION/ RESULT NEGATIVE FOR INTRAEPITHELIAL LESION OR MALIGNANCY (NIL) (none) 09/30/2018 10:23 AM CDT [facility] at 1023 CDT SPECIMEN ADEQUACY Satisfactory for evaluation Endocervical component present 09/30/2018 10:23 AM CDT [facility] HPV REQUEST HPV and PAP 09/30/2018 10:23 AM CDT [facility] Date of LMP 08/23/2018 09/30/2018 10:23 AM CDT [facility] Last Pap Result First Pap/Unknown 10:23 AM T [facility] Automated Review Successful 09/30/2018 10:23 AM [facility] Comment:Specimen processed s uccessfully by automated cut off saw set up operator device, ThinPrep Imaging System, [employer] ANCILLARY TESTING FOOD AND BEVERAGE MANAGER HPV Ordered, Please see separate report 09/30/2018 10:23 AM [facility] Note The pap test is a screening technique, not a diagnostic procedure. It is used primarily to screen for squamous cancers and precursor lesions. Published studies have shown that it is subject to both false negative and false positive results. The pap test should not be used as the sole means to diagnose or exclude pre-malignant and malignant lesions. Cytology is screened and interpreted at [facility] - [address], [place] [address] and [facility] - [address]; [place] [address] and [facility] - [address]; [place] [address] and [facility] [address]; [place] [address] 09/30/2018 10:23 AM [facility] Other (Cervical/Vagina l) 09/23/2018 12:00 PM PUBLIC INFORMATION SPECIALIST 09/25/2018 1:35 PM PUBLIC INFORMATION SPECIALIST us Amelia Nichols MD PATHOLOGY/CYTOLOGY Final Result [facility] [address] [place] [address], from Last 3 Months or Most Recently Relevant to Health Maintenance Insurance [facility] [place] [address] Advance Directives * Full Code (Latest Code Status on File) Date Activated Date Inactivated Comments 11/27/2022 1:40 PM 11/27/2022 5:31 PM Question Answer Comments Code Status Discussion: Unable to Assess Preferences, Provider to review later * Full Code Date Activated Date Inactivated Comments 11/27/2022 1:40 PM 11/27/2022 1:40 PM Question Answer Comments Code Status Discussion: Unable to Assess Preferences, Provider to review later Care Teams Digitizer Relationship Specialty Start Date End Date Renetta Geller MD [address] [place] [address] PCP - General 08/09/06
--- OUTSIDE RECORDS SUMMARY | 2024-11-09 11:43 | XMS_ITS | Encounter Summary ---
Author Organization [facility] Address [address] [place] [address] Care Team Providers Care Rehabilitation Psychologist Name Role Phone No Primary/Referring, Phy Primary Care Provider Unavailable Encounter Details Date Type Department Care Team (Late st Contact Info) Description 06/04/2019 Consent for Procedure/Treatme nt [facility] Department RH [...] on filedocumented in this encounter Care Teams Rehabilitation Psychologist Relationship Specialty Start Date End Date No Primary/ReferringMohit PCP - General 05/05/19 documented as of this encounter
--- OUTSIDE RECORDS SUMMARY | 2024-11-09 11:43 | XMS_ITS | Continuity of Care Document ---
Author Name [facility] Organization [facility] Care Team Providers Care Balling Machine Operator Name Role Phone [facility] Unavailable Unavailable Social History Combined list of available smoking, tobacco, and other social history from Department of Defense and Veterans Affairs facilities. Social History Type Response Date Comment Sourc e This section is an empty social history section. [facility]
--- OUTSIDE RECORDS SUMMARY | 2024-11-09 11:43 | XMS_ITS | Clinical Summary ---
Author Organization [facility] Address [address] [place] [address] Care Team Providers Care Enrollment Counselor Name Role Phone No Primary/Referring, Phy Primary Care Provider Unavailable Source Comments You are receiving this document as you are listed as the primary care provider,follow-up provider, or the patient has been referred to you for consultation.This is in compliance with the Medicare and[facility] EHR Incentive Program,which states Providers who transition their patient to another setting of careor provider of care or refers their patient to another provider of care shouldprovide summary care record for each transition of care or referral. [employer] [facility] Hospital[facility] Allergies No known active allergies Medications hydrOXYzine pamoate (VISTARIL) 50 MG capsule Take 1 Capsule by mouth three times a day as needed for Anxiety. 90 Capsule 05/09/2019 Active mirtazapine (REMERON) 7.5 MG tablet Take 7.5 mg by mouth daily at bedtime. 30 Tablet 05/09/2019 Active venlafaxine (EFFEXORXR) 150 MG 24 hour release capsule Take 1 Capsule by mouth daily with breakfast. 30 Capsule 05/09/2019 Active traZODone (DESYREL) 100 MG tablet Take 1 Tablet by mouth at bedtime as needed; may repeat x 1 for Sleep. 30 Tablet 06/10/2019 Active Active Problems Problem Noted Date Diagnosed Date Severe episode of recurrent major depressive disorder, without psychotic features 05/06/2019 Alcohol use disorder, moderate, in early remissi on 05/06/2019 Adenomatous colon polyp 10/02/2018 Overview (06/04/2019): Colonoscopy 09/2018 polyp, repeat in 5 years At risk for domestic violence 11/16/2016 Cervical radicular pain 12/22/2014 Prolonged depressive reaction 03/12/2014 Family history of malignant neoplasm of gastrointestinal tract 11/21/2012 Overview (06/04/2019): Mother with colon cancer at age 70 Colonoscopy 11/2012 normal repeat in 5 years Tobacco use disorder 11/25/2009 Social History Tobacco Use Types Packs/Day Years Used Date Smoking Tobacco: Every Day Smokeless Tobacco: Never Comments Unknown Sex and Gender Information Value Date Recorded Sex Assigned at Not on file Legal Sex Female 8:37 PM CDT Gender Identity Not on file Sexual Orientation Not on file Last Filed Vital Signs Vital Sign Reading Time Taken Comments Blood Pressure 121/67 06/10/2019 4:00 PM PRESCHOOL EDUCATION DIRECTOR Pulse 104 06/10/2019 4:00 PM PRESCHOOL EDUCATION DIRECTOR Temperature 37.1 C (98.8 F) 06/10/2019 4:00 PM PRESCHOOL EDUCATION DIRECTOR Respiratory Rate 18 06/10/2019 4:00 PM PRESCHOOL EDUCATION DIRECTOR Oxygen Saturation 97% 06/10/2019 4:00 PM PRESCHOOL EDUCATION DIRECTOR Inhaled Oxygen Concentration - - Weight 85.7 kg (189 lb) 06/04/2019 11:00 PM PRESCHOOL EDUCATION DIRECTOR Height 170.2 cm (5' 7) 06/04/2019 11:00 PM PRESCHOOL EDUCATION DIRECTOR Body Mass Index 29.6 06/04/2019 11:00 PM PRESCHOOL EDUCATION DIRECTOR Plan of Treatment Health Maintenance Due Date Last Done Comments Cervical Cancer Screening Due 1971 Colon Cancer Screening Plan Due 1971 Hep C Screening (Preventive Services) 1971 Mammogram 1971 HIV Screening (Preventive Services) 1987 Adult Preventive Visit 12/18/1989 HepB Vaccine (1) 12/18/1990 Pneumococcal Vaccine 50+ Yrs (1 of 2 - PCV) 12/18/1990 Cholesterol 12/18/2016 DTaP/Tdap/Td Vaccine (2 - Tdap) 11/29/2020 11/29/2010, 04/06/2004 Zoster/Shingles Vaccine (1 of 2) 12/18/2021 COVID-19 Vaccine (1 - season) 2024 Influenza Vaccine (#1) 2024 9, 05/10/2018, 06/26/2017, Additional history exists HepA Vaccine Aged Out No longer eligi ble based on patient's age to complete this topic Hib Vaccine Aged Out No longer eligi ble based on patient's age to complete this topic IPV (Polio) Vaccine Aged Out No longe r eligible based on patient's age to complete this topic MCV4 Vaccine Aged Out No longer eligi ble based on patient's age to complete this topic Meningococcal B Vaccine Aged Out No l onger eligible based on patient's age to complete this topic Insurance Advance Directives * Full Code (Latest Code Status on File) Date Activated Date Inactivated Comments 06/04/2019 11:19 PM 06/10/2019 7:14 PM * Full Code Date Activated Date Inactivated Comments 05/06/2019 2:22 AM 05/09/2019 5:08 PM Care Teams Enrollment Counselor Relationship Specialty Start Date End Date No Primary/Referring, Phy PCP - General 05/05/19
--- OUTSIDE RECORDS SUMMARY | 2024-11-09 11:43 | XMS_ITS | Clinical Summary ---
Author Organization [facility] Address [address] [place] [address] Care Team Providers Care Sales Administrator Name Role Phone None Reported, Pcp Primary Care Provider Unavail able Source Comments Patient records contain information from all sites at [facility]. For routine questions regarding patient records, call [phone] during business hours, M-F 8:00 AM - 5:00 PM Central Time. Record requests for emergency care only can be directed to [phone] at any time.[facility] Allergies No known active allergies Medications No known medications Social History Tobacco Use Types Packs/Day Years Used Date Smoking Tobacco: Every Day Cigarettes Smokeless Tobacco: Never Alcohol Use Standard Drinks/Week Comments Yes 12 (1 standard drink = 0.6 oz pu re alcohol) Dental Answer Date Recorded Dental: Regular Dentist Unknown 01/29/20 24 Comments No Sex and Gender Information Value Date Recorded Sex Assigned at Not on file Legal Sex Female 10:51 AM SEROLOGIST Gender Identity Not on file Sexual Orientation Not on file Last Filed Vital Signs Vital Sign Reading Time Taken Comments Blood Pressure 106/70 01/29/2024 11:34 AM CDT Pulse 88 01/29/2024 11:34 AM CDT Temperature 36.8 C (98.2 F) 01/29/2024 11:30 AM CDT Respiratory Rate 20 01/29/2024 11:34 AM CDT Oxygen Saturation 100% 01/29/2024 11:34 AM CDT Inhaled Oxygen Concentration - - Weight 77.3 kg (170 lb 6.7 oz) 01/29/2024 6:47 A M CDT Height - - Body Mass Index - - Plan of Treatment Health Maintenance Due Date Last Done Comments CT Colonography 1971 Cologuard 1971 FIT 1971 HIV Screening 1971 Hepatitis C Screening 1971 Tobacco Cessation counseling 1971 Hepatitis B Vaccines (1 of 3 - 19+ 3-dose series) 12/18/1990 Pneumococcal vaccine (50+ years) (1 of 2 - PCV) 12/18/1990 Cervical/Vaginal Cancer Screening 09/23/2021 09/23/2018 Zoster Vaccines (1 of 2) 12/18/2021 Mammogram 02/22/2022 02/22/2021 COVID-19 Vaccine ( - season) 2024 09/17/2023, 04/28/2022, 08/18/2021, Additional history exists Influenza Vaccine (#1) 2024 , 04/28/2022, 10/01/2020, Additional history exists Depression Screening (Annual PHQ-2) 07/23/2024 Fasting Glucose for Diabetes Screening 01/28/2027 01/29/2024, 01/29/2024, 11/21/2022, Additional history exists Lipid (Cholesterol) Screening 04/28/2027 04/28/2022 DTaP,Tdap,and Td Vaccines (3 - Td or Tdap) 02/17/2031 02/17/2021, 11/29/2010 Colonoscopy 11/27/2032 11/27/2022 Colorectal Cancer Screening 11/27/2032 Hepatitis B Screening Discontinued 11/01/2021 , 02/17/2021, 09/28/2020, Additional history exists IPV Vaccines Aged Out No longer eligi ble based on patient's age to complete this topic Procedures Procedure Name Priority Date/Time Associated Diagnosis Comments GLUCOSE POCT, B Routine 01/29/2024 6:39 AM CDT from Last 3 Months or Most Recently Relevant to Health Maintenance Results * Glucose, POCT (01/29/2024 6:39 AM CDT) Glucose, POCT, B 115 70 - 140 mg/dL 01/29/2024 6:39 AM CDT [facility] Blood 01/29/2024 6:39 AM CDT 01/29/2024 6:46 AM CDT us Generic [facility] POCT ORDERABLES-MANUAL Final Result [facility] [address] [place] [address], [facility] [place] [address] [phone] from Last 3 Months or Most Recently Relevant to Health Maintenance Insurance RAMEZ Care Teams Sales Administrator Relationship Specialty Start Date End Date None Reported, Pcp PCP - General 05/30/24
[2024-11-09 11:51] VITALS: BP 146/60; PULSE 85; RESP 18; TEMP 36.9; O2SAT 99; BMI 23.6
--- NOTE | 2024-11-09 11:59 | ED.LOWEXIN ---
HPI - Extremity Injury (Lower) General Time Seen by Provider: 11:59 Date Seen: 11/09/24 Chief Complaint: Extremity Pain/Injury, Lower Stated Complaint: right leg, xrays on Sunday, dislocated knee cap Time Seen by Provider: 11/09/24 11:59 Source: patient and RN notes reviewed Mode of arrival: ambulatory Limitations: no limitations History of Present Illness HPI Narrative: Dafne is a very pleasant 53-year-old female with history of tobacco use who comes to the emergency room with concerns regarding bruising of her right leg and trauma to the same area twice. On October 31 patient fell and she was assessed in told that she had a displaced kneecap. She is scheduled for ultrasound tomorrow because she noticed some discomfort and firmness along the lower calf and the medial distal thigh. She comes in today because her dog jumped up on her onto the very area of her injury yesterday. She did have swelling just beneath her kneecap but now it is much worse. She notes the she also has discoloration throughout her lower extremity now. She does not have any acute shortness of breath or chest pain. She has no history of DVT. She is able to bear weight. Related Data Home Medications ?Medication ?Instructions ?Recorded ?Confirmed albuterol sulfate 90 mcg/actuation 1 puff inhalation Q4H PRN 09/25/22 11/09/24 aerosol inhaler aripiprazole 2 mg tablet 2 mg PO DAILY 09/25/22 12/21/22 venlafaxine 150 mg 150 mg PO DAILY 09/25/22 11/09/24 capsule,extended release 24 hr Previous Rx's ?Medication ?Instructions ?Recorded ketorolac 10 mg tablet 10 mg PO Q8H 5 days #15 tabs 09/25/22 ondansetron HCl 4 mg tablet 4 mg PO Q6H #10 tabs 09/25/22 ketorolac 10 mg tablet 10 mg PO Q8H 5 days #15 tabs 07/17/23 polymyxin B sulfate 10,000 1 drp ophthalmic (eye) Q3H 7 days 07/17/23 unit-trimethoprim 1 mg/mL eye drops #10 mL valacyclovir 1 gram tablet 1,000 mg PO TID #15 tabs 07/17/23 (Valtrex) Allergies Allergy/AdvReac Type Severity Reaction Status Date / Time No Known Drug Allergies Allergy Verified 11/09/24 11:50 Review of Systems Status of ROS: Reports: 6 or more systems reviewed and unremarkable except as noted in History and below Const: Denies: fever Cardio: Denies: chest pain or shortness of breath with exertion Resp: Denies: shortness of breath or cough Musculo: Reports: extremity pain Integ/Breast: Reports: skin tenderness PFSH PFSH Social History Smoking Status: Current some day smoker What tobacco products do you use: cigarettes How often do you have a drink containing alcohol: 4 or more times a week How many standard drinks containing alcohol do you have on a typical day: 3 or 4 AUDIT-C Alcohol total score: 5 Non-prescribed substance use: marijuana (any form) and crack/cocaine service: No Exam Narrative: Exam Narrative: Alert and oriented. Very pleasant woman in no acute distress. Heart with regular rate and rhythm and lungs are clear. Mentation is normal. Speech is normal. Examination of the right leg shows diffuse ecchymosis along the medial and inferior to the knee. No significant calf tenderness. Circumferential area of swelling approximately 3 cm in diameter over the tibial plateau. Patella is isolated in moves without difficulty. Ecchymosis noted also on the medial aspect of the distal thigh. No fluctuance in this area. Measuring approximately 3 in a 0.5 cm by 1-1/2 cm. Const: Vital Signs, click to edit/add: Vital Signs - 24 hr 11/09/24 11:51 11/09/24 13:49 Temperature 98.5 F Pulse Rate [Pulse Oximeter] 85 76 Respiratory Rate 18 16 Blood Pressure [Ri ght Upper Arm] 146/60 H 134/91 H Pulse Oximetry 99 96 Oxygen Delivery Me thod Room Air Room Air Documenting provider has reviewed patient's vital signs: yes Course Course ED Course: Differential diagnosis includes but is not limited to tibial plateau fracture, hematoma, DVT. Will obtain ultrasound of the right lower extremity along with x-ray of the right knee. If x-ray reassuring given patient's amount of discomfort bruising would recommend CT to rule out tibial plateau injury. Reevaluation(s) Reevaluation #1: Patient noted to have x-ray by my read without evidence of fracture. Have ordered CT of the right knee. Vital Signs Vital signs: Initial Vital Signs Temperature 98.5 F 04/20/25 11:51 Temperature Source Temporal Artery Scan 11/09/24 11:51 Pulse Rate 85 11/09/24 11:51 Respiratory Rate 18 11/09/24 11:51 Blood Pressure 146/60 H 11/09/24 11:51 Blood Pressure Mean 88 11/09/24 11:51 Pulse Oximetry 99 11/09/24 11:51 Oxygen Delivery Method Room Air 11/09/24 11:51 Vital Signs Temperature 98.5 F 11/09/24 11:51 Pulse Rate 85 11/09/24 11:51 Respiratory Rate 18 11/09/24 11:51 Blood Pressure 146/60 H 11/09/24 11:51 Pulse Oximetry 99 11/09/24 11:51 Oxygen Delivery Method Room Air 11/09/24 11:51 Temperature 98.5 F 11/09/24 11:51 Pulse Rate 76 11/09/24 13:49 Respiratory Rate 16 11/09/24 13:49 Blood Pressure 134/91 H 11/09/24 13:49 Pulse Oximetry 96 11/09/24 13:49 Oxygen Delivery Method Room Air 11/09/24 13:49 MDM - Extremity Injury (Lower) MDM Narrative Medical decision making narrative: 1. Right knee hematoma-over tibial plateau. Patient thought this was actually where her knee cap was but patella is isolated and is not dislocated as she had thought. Ultrasound does not show any evidence of DVT. CT shows no evidence of underlying fracture. Hematoma is present. 2. Disposition-home. Will place a knee immobilizer for comfort. Patient may use Tylenol or ibuprofen as needed for pain. Resolution of the bruising should occur over the next 5 days. Return as needed for worsening symptoms. Patient does have follow-up scheduled for tomorrow. Addendum: Need also talked about her alcohol use which is a 2 drinks nightly. She states that she was asked a few times here and that is what worries her. She really needs to consider cutting down to 1 drink a night or even cutting alcohol out to to stick few times a week. She will talk to per primary in regards to this. We also discussed tobacco use. She is smoking approximately half a pack a day. We did talk about quitting tobacco use as well. Medical Records Attestation: I reviewed the patient's medical records. Imaging Data Knee x-ray: Attestation: I have reviewed the pertinent imaging results. My impression: I do not note any acute fracture. Radiologist's impression: No acute fracture or malalignment. Small suprapatellar joint effusion. Mild osteoarthritic degenerative changes of the patellofemoral and medial compartments. No suspicious osseous lesions. Os fabella. Patellar enthesophytes. Mild soft tissue swelling anterior to the proximal tibia. Venous US: Attestation: I have reviewed the pertinent imaging results. Radiologist's impression: Deep veins: The imaged right common femoral, deep femoral, superficial femoral, popliteal, posterior tibial, peroneal and contralateral left common femoral veins are patent and free of clot. Superficial veins: The imaged right great saphenous vein is patent and free of clot. Extravascular findings: A circumscribed fusiform mixed echotexture avascular superficial finding anterior to the proximal tibia is consistent with a hematoma. This measures 3 x 1.1 x 4.7 cm in transverse, AP and craniocaudad dimensions, respectively, and corresponds to the finding superficial to the tibial tuberosity on the same day CT examination. IMPRESSION: 1. No evidence of DVT in the right lower extremity. 2. A circumscribed fusiform mixed echotexture avascular superficial finding anterior to the proximal tibia is consistent with a hematoma. This measures 3 x 1.1 x 4.7 cm in transverse, AP and craniocaudad dimensions, respectively, and corresponds to the finding superficial to the tibial tuberosity on the same day CT examination. Clinical correlation and follow-up to resolution are recommended. Right knee CT: Attestation: I have reviewed the pertinent imaging results. Radiologist's impression: No acute fracture or malalignment. Trace suprapatellar joint effusion. Tricompartmental osteoarthritic degenerative changes to include patellofemoral and medial compartment joint space narrowing with mild subchondral sclerosis and tricompartmental osteophyte formation. Os fabella. There are some small degenerative cysts seen along the posterior margin of the tibia. No suspicious osseous lesions. Small subcutaneous hematoma seen in the subcutaneous fat of the anterior knee at the level of the proximal tibia measuring approximately 4.5 centimeters in greatest dimension. The vasculature is unremarkable. Impression: 1. No acute fracture or malalignment. 2. Trace knee joint effusion. 3. Small hematoma in the subcutaneous fat at the level of the proximal tibia. 4. Tricompartmental osteoarthritic degenerative changes. Discharge Plan Discharge Clinical Impression: Traumatic hematoma of right knee Qualifiers: Encounter type: initial encounter Qualified Code(s): S80.01XA - Contusion of right knee, initial encounter Patient Disposition: Home, Self-Care Condition: Unchanged Additional Instructions: Knee immobilizer for comfort and support. Ice as needed. Tylenol or ibuprofen as needed. Return as needed for worsening symptoms. You should note resolution of the bruising over the next 5 days. Prescriptions: No Action albuterol sulfate 90 mcg/actuation HFA aerosol inhaler 1 puff INHALATION Q4H PRN Patient Comments: Inhale 1-2 Puffs by mouth every 4 hours if needed for Shortness Of Breath. aripiprazole 2 mg tablet 2 mg PO DAILY Patient Comments: TAKE ONE TABLET BY MOUTH ONE TIME DAILY venlafaxine 150 mg capsule,extended release 24hr 150 mg PO DAILY Patient Comments: TAKE ONE CAPSULE BY MOUTH ONE TIME DAILY IN THE EVENING WITH FOOD ondansetron HCl 4 mg tablet 4 mg PO Q6H Qty: 10 0RF ketorolac 10 mg tablet 10 mg PO Q8H 5 Days Qty: 15 0RF valacyclovir [Valtrex] 1 gram tablet 1,000 mg PO TID Qty: 15 2RF ketorolac 10 mg tablet 10 mg PO Q8H 5 Days Qty: 15 0RF polymyxin B sulf-trimethoprim 10,000 unit- 1 mg/mL drops 1 drp ophthalmic (eye) Q3H 7 Days Qty: 10 0RF Rx Instructions: while awake; do not exceed 6 doses in 24 hours Follow Up/Referrals: Renetta Geller MD [Primary Care Provider] - Stand Alone Forms: [employer] Info Instructions
--- NOTE | 2024-11-09 12:07 | CRLHL7_ITS ---
For Patients: As a result of the Century Cures Act, medical imaging exams and procedure reports are released immediately into your electronic medical record. You may view this report before your referring provider. If you have questions, please contact your health care provider. Indication: Pain Technique: Two views of the right knee Comparison: None Findings/Impression: No acute fracture or malalignment. Small suprapatellar joint effusion. Mild osteoarthritic degenerative changes of the patellofemoral and medial compartments. No suspicious osseous lesions. Os fabella. Patellar enthesophytes. Mild soft tissue swelling anterior to the proximal tibia. Dictated by Getachew Santacruz MD @ 11/09/2024 12:44:33 PM (Electronically Signed)
--- NOTE | 2024-11-09 12:08 | CRLHL7_ITS ---
For Patients: As a result of the Century Cures Act, medical imaging exams and procedure reports are released immediately into your electronic medical record. You may view this report before your referring provider. If you have questions, please contact your health care provider. INDICATION: DIFFUSE BRUSING, FIRMNESS ON MEDIAL KNEE. (Sic) COMPARISON: Same day CT. TECHNIQUE: Static and compression grayscale and spectral (including color) Doppler ultrasound of the right lower extremity. FINDINGS: Deep veins: The imaged right common femoral, deep femoral, superficial femoral, popliteal, posterior tibial, peroneal and contralateral left common femoral veins are patent and free of clot. Superficial veins: The imaged right great saphenous vein is patent and free of clot. Extravascular findings: A circumscribed fusiform mixed echotexture avascular superficial finding anterior to the proximal tibia is consistent with a hematoma. This measures 3 x 1.1 x 4.7 cm in transverse, AP and craniocaudad dimensions, respectively, and corresponds to the finding superficial to the tibial tuberosity on the same day CT examination. IMPRESSION: 1. No evidence of DVT in the right lower extremity. 2. A circumscribed fusiform mixed echotexture avascular superficial finding anterior to the proximal tibia is consistent with a hematoma. This measures 3 x 1.1 x 4.7 cm in transverse, AP and craniocaudad dimensions, respectively, and corresponds to the finding superficial to the tibial tuberosity on the same day CT examination. Clinical correlation and follow-up to resolution are recommended. Dictated by Lupillo Cervantes MD @ 11/09/2024 2:29:34 PM (Electronically Signed)
--- OUTSIDE RECORDS SUMMARY | 2024-11-09 12:22 | XMS_ITS | Encounter Summary ---
Author Organization [facility] Address [address] [place] [address] Care Team Providers Care Manager Of Pharmacy Name Role Phone No Primary/Referring, Phy Primary [...] on filedocumented in this encounter Care Teams Manager Of Pharmacy Relationship Specialty Start Date End Date No Primary/ReferringMohit PCP - General 05/05/19 documented as of this encounter
--- OUTSIDE RECORDS SUMMARY | 2024-11-09 12:22 | XMS_ITS | Clinical Summary ---
Author Organization [facility] Address [address] [place] [address] Care Team Providers Care Suede Cleaner Name Role Phone No Primary/Referring, Phy Primary Care Provider Unavailable Source Comments You are receiving this document as you are listed as the primary care provider,follow-up provider, or the patient has been referred to you for consultation.This is in compliance with the Medicare and[facility] E[facility] Incentive [facility],which states Providers who transition their patient to another setting of careor provider of care or refers their patient to another provider of care shouldprovide summary care record for each transition of care or referral. [facility] Allergies No known active allergies Medications hydrOXYzine [...] Comments Blood Pressure 121/67 06/10/2019 4:00 PM POURER Pulse 104 06/10/2019 4:00 PM POURER Temperature 37.1 C (98.8 F) 06/10/2019 4:00 PM POURER Respiratory Rate 18 06/10/2019 4:00 PM POURER Oxygen Saturation 97% 06/10/2019 4:00 PM POURER Inhaled Oxygen Concentration - - Weight 85.7 kg (189 lb) 06/04/2019 11:00 PM POURER Height 170.2 cm (5' 7) 06/04/2019 11:00 PM POURER Body Mass Index 29.6 06/04/2019 11:00 PM POURER Plan of Treatment Health Maintenance Due Date [...] 2:22 AM 05/09/2019 5:08 PM Care Teams Suede Cleaner Relationship Specialty Start Date End Date No Primary/Referring, Phy PCP - General 05/05/19
--- OUTSIDE RECORDS SUMMARY | 2024-11-09 12:22 | XMS_ITS | Continuity of Care Document ---
Author Name [facility] Organization [facility] Care Team Providers Care Foot Orthopedist Name Role Phone [facility] Unavailable Unavailable Social History Combined list of available smoking, tobacco, and other social history from Department of Defense and Veterans Affairs facilities. Social History Type Response Date Comment Sourc e This section is an empty social history section. [facility]
--- OUTSIDE RECORDS SUMMARY | 2024-11-09 12:22 | XMS_ITS | Encounter Summary ---
Author Organization [facility] Address [address] [place] [address] Care Team Providers Care Claim Investigator Name Role Phone No Primary/Referring, Phy Primary [...] on filedocumented in this encounter Care Teams Claim Investigator Relationship Specialty Start Date End Date No Primary/ReferringMohit PCP - General 05/05/19 documented as of this encounter
--- OUTSIDE RECORDS SUMMARY | 2024-11-09 12:22 | XMS_ITS | Encounter Summary ---
[facility] Organization [facility] Address [address] [place] [address] Care Team Providers Care Elevator Operator Name Role Phone No Primary/Referring, Phy Primary [...] on filedocumented in this encounter Care Teams Elevator Operator Relationship Specialty Start Date End Date No Primary/ReferringMohit PCP - General 05/05/19 documented as of this encounter
--- OUTSIDE RECORDS SUMMARY | 2024-11-09 12:22 | XMS_ITS | Clinical Summary ---
Author Organization [facility] Address [address] [place] [address] Care Team Providers Care Spray Operator Name Role Phone Renetta Geller MD Primary [...] Department Care Team Description 11/09/2024 Nurse Triage [facility] [address] [place] [address] Renetta Geller MD Knee Injury 11/07/2024 1:00 PM CDT Ancillary Procedure [facility] [address] [place] [address] Arrived 11/07/2024 Travel 11/06/2024 2:30 PM CDT Telemedicine [facility] [address] [phone] Jil De Luna NP Telehealth; Knee Injury 09/26/2024 Orders Only [facility] Scanner 1 scan: (1-Ord) [facility] 08/12/2024 Refill [facility] [address] [place] [address] Renetta Gelelr MD Refill Request (Venlafaxine) from Last 3 Months Immunizations Immunization Administration Dates Next Due AMB Influenza, IIV3 (Age >=3 years)(Flu Clinic Only) 06/05/2008 AMB Influenza, IIV4 PF (=>6 mos Flulaval,Fluzone Fluarix)(Flu Clinic Only) 05/10/2018,07/01/2014 COVID-19 VACCINE SPIKEVAX (M ODERNA 50MCG/0.5ML) 12YO+ PFS 07/14/2024,09/17/2023 COVID-19 vaccine (Moderna 100mcg/0.5mL) PF, MDV 12/08/2020,11/10/2020 COVID-19 vaccine (Moderna Drew karuna 50mcg/0.25mL) PF, MDV 08/18/2021 COVID-19 vaccine (Off-Grid SolutionsBio NTech 30mcg/0.3mL) 12YO+ BIVALENT PF, MDV 04/28/2022 [...] on file Legal Sex Female 6:16 AM MANAGER DISH Gender Identity Not on file Sexual Orientation [...] Comments Blood Pressure 110/69 06/06/2024 1:20 PM MANAGER DISH Pulse 106 06/06/2024 1:20 PM MANAGER DISH Temperature 37 C (98.6 F) 12/12/2023 1:47 PM CDT Respiratory Rate 16 06/08/2023 10:04 AM MANAGER DISH Oxygen Saturation 95% 06/06/2024 1:20 PM MANAGER DISH Inhaled Oxygen Concentration - - Weight 75 kg (165 lb 6.4 oz) 06/06/2024 1:20 PM MANAGER DISH Height 172.7 cm (5' 8) 11/27/2022 1:49 PM CDT Body Mass Index 25.15 11/27/2022 1:49 PM CDT Plan of Treatment Upcoming Encounters Date Type Department Care Team (Late st Contact Info) Description 11/10/2024 8:00 AM CDT Orders Only [facility] [address] [place] [address] 11/11/2024 7:50 AM CDT Office Visit [facility] [address] [place] [address] Reno Olivares MD [address] [place] [address] Health Maintenance Due Date Last Done Comments [...] right knee SCAN-EYE EXAM 09/26/2024 12:00 AM MANAGER DISH LC HIV-1/O/2, 4TH GENERATION Routine 02/22/2023 8:23 AM CDT Screening for STDs (sexually transmitted diseases) COLONOSCOPY 11/27/2022 2:15 PM CDT XR MAMMO BILAT SCREENING Routine 06/12/2022 8:39 AM MANAGER DISH Visit for screening mammogram LIPID PANEL W REFLEX MEASURED LDL Routine 04/28/2022 9:17 AM CDT Lipid screening ANTI HCV Routine 02/17/2021 10:07 AM CDT Screening examination for STD (sexually transmitted disease) PENSION ADMINISTRATOR THIN PREP PAP SCREEN IMAGED Routine 09/23/2018 12:00 PM MANAGER DISH from Last 3 Months or Most Recently [...] @ 11/07/2024 1:33:28 PM (Electronically Signed) us Jil De Luna NP GENERAL IMAGING Final Re sult * SCAN-EYE EXAM (09/26/2024 12:00 AM MANAGER DISH) us Scanner OTHER Final Result * LC HIV-1/O/2, 4TH GENERATION (02/22/2023 8:23 AM CDT) HIV Scr 4th Gen Non Reactive Non Reactive 02/24/2023 11:08 AM CDT [facility] Comment: HIV Negative HIV-1/HIV-2 antibodies and HIV-1 p24 antigen were NOT detected. There is no laboratory evidence of HIV infection. Blood BLOOD SPECIMEN / Unknown Venipuncture / Unknown 02/22/2023 8:23 AM CDT 02/22/2023 8:23 AM CDT Narrative [facility] ([facility]) - 02/24/2023 11:08 AM CDT Performed at: - [facility] [address] [facility], [place], [place] [id number] Fishing Line Winding Machine Operator: Brock Park MD, Phone: [phone] [facility] Final Result [facility]) [facility] [place] [address], [place] * COLONOSCOPY (11/27/2022 2:15 PM CDT) [...] XR MAMMO BILAT SCREENING (06/12/2022 8:39 AM MANAGER DISH) Anatomical Region Laterality Modality BREASTS, Breast Left, Breast Right Bilateral Mammography Impressions 06/12/2022 1:51 PM MANAGER DISH There is no radiographic evidence for malignancy. Recommend annual mammograms. MAMMOGRAM ASSESSMENT: ACR 1 Negative PATIENTS: You will also receive a letter with your examination results in an easy to read format. If you have questions about your results, please contact your referring provider. Narrative 06/12/2022 1:51 PM MANAGER DISH For Patients: As a result of the Century Cures Act, medical imaging exams and procedure reports are released immediately into your electronic medical record. You may view this report before your referring provider. If you have questions, please contact your health care provider. XR MAMMO BILAT SCREENING [[id number]] CLINICAL HISTORY: This is an asymptomatic 51 y.o. patient. INDICATION FOR EXAM: Mammogram Screening. TECHNIQUE: CC & MLO views were obtained. This study was evaluated with the assistance of Computer-Aided Detection. COMPARISON FILM: Yes 02/22/21 [facility] 08/16/[address] [facility] FINDINGS: The breasts have scattered areas of fibroglandular density. There are no dominant masses, suspicious micro calcifications or areas of architectural distortion. us Renetta Geller MD MAMMO Final Result * LIPID PANEL W REFLEX MEASURED LDL (04/28/2022 9:17 AM CDT) CHOLESTEROL,TOTAL 174 100 - 199 mg/dL 04/29/2022 7:56 AM CDT [facility] TRIGLYCERIDES 62 <150 mg/dL 04/29/2022 7:56 AM CDT [facility] HDL CHOLESTEROL 66 >40 mg/dL 7:56 AM CDT [facility] NON-HDL CHOLESTEROL 108 <145 mg/dl 04/29/2022 7:56 AM CDT [facility] CHOL/HDL RATIO 2.64 <4.50 04/29/2022 7:56 AM CDT [facility] LDL CHOLESTEROL 96 <=130 mg/dL 04/29/2022 7:56 AM CDT [facility] VLDL CHOLESTEROL 12 <=30 mg/dL 04/29/2022 7:56 AM CDT [facility] PROVIDER ORDERED STATUS RANDOM 04/29/2022 7:56 AM CDT [facility] Blood BLOOD SPECIMEN / Unknown Venipuncture / Unknown 04/28/2022 9:17 AM CDT 04/28/2022 9:17 AM CDT us Kimberly Steel MD CHEMISTRY Final Resul t [facility] [address] [place] [address], [place] [facility] [address] [id number], [place] [phone] * ANTI HCV (02/17/2021 10:07 AM CDT) HEPATITIS C ANTIBODY Non-React brenna Non-React brenna 02/17/2021 5:05 PM CDT [facility] Comment:Antibodies to HCV no t detected; does not exclude the possibility of exposure to HCV. Blood BLOOD SPECIMEN / Unknown Venipuncture / Unknown 02/17/2021 10:07 AM CDT 02/17/2021 10:09 AM CDT Renetta Geller MD SEND OUTS Final Result [facility] [address] [place] [address], [place] * PENSION ADMINISTRATOR THIN PREP PAP SCREEN IMAGED (09/23/2018 12:00 PM MANAGER DISH) Case Report Gynecologic Cytology Report Case: [id number] Authorizing Provider: Amelia Nichols Collected: 09/23/2018 1200 MD Jack Ordering Location: [facility] Received: 09/25/2018 1335 First Screen: Anitha Giang Specimen: PENSION ADMINISTRATOR ThinPrep Vial Screening, Cervical/Vaginal 09/30/2018 10:23 AM CDT [facility] INTERPRETATION/ RESULT NEGATIVE FOR INTRAEPITHELIAL LESION OR MALIGNANCY (NIL) (none) 09/30/2018 10:23 AM CDT [facility] at 1023 CDT SPECIMEN ADEQUACY Satisfactory for evaluation Endocervical component present 09/30/2018 10:23 AM CDT [facility] HPV REQUEST HPV and PAP 09/30/2018 10:23 AM CDT [facility] Date of LMP 08/23/2018 09/30/2018 10:23 AM CDT [facility] Last Pap Result First Pap/Unknown 10:23 AM T [facility] Automated Review Successful 09/30/2018 10:23 AM [facility] Comment:Specimen processed s uccessfully by automated celery stripper device, ThinPrep Imaging System, [employer] ANCILLARY TESTING PENSION ADMINISTRATOR HPV Ordered, Please see separate report 09/30/2018 10:23 AM [facility] Note The pap test [...] lesions. Cytology is screened and interpreted at [facility] - [address], [place] [address] and [facility] - [address]; [place] [address] and [facility] - [address]; [place] [address] and [facility] [address]; [place] [address] 09/30/2018 10:23 AM [facility] Other (Cervical/Vagina l) 09/23/2018 12:00 PM MANAGER DISH 09/25/2018 1:35 PM MANAGER DISH us Amelia Nichols MD PATHOLOGY/CYTOLOGY Final Result [facility] [address] [place] [address], from Last 3 Months or Most Recently Relevant to Health Maintenance Insurance [facility] [place] [address] Advance Directives * Full Code (Latest Code [...] Preferences, Provider to review later Care Teams Spray Operator Relationship Specialty Start Date End Date Renetta Geller MD [address] [place] [address] PCP - General 08/09/06
--- OUTSIDE RECORDS SUMMARY | 2024-11-09 12:22 | XMS_ITS | Clinical Summary ---
Author Organization [facility] Address [address] [place] [address] Care Team Providers Care Welder Tack Name Role Phone None Reported, Pcp Primary Care Provider Unavail able Source Comments Patient records contain information from all sites at [facility]. For routine questions regarding patient records, call [phone] during business hours, M-F 8:00 AM - 5:00 PM Central Time. Record requests for emergency care only can be directed to [phone] at any time.[facility] Allergies No known active allergies Medications No [...] on file Legal Sex Female 10:51 AM WOUND CARE TECHNICIAN Gender Identity Not on file Sexual Orientation [...] Generic Rals LAB POCT ORDERABLES-MANUAL Final Result [facility] [address] [place] [address], [facility] [address] [phone] from Last 3 Months or Most Recently Relevant to Health Maintenance Insurance [employer] Care Teams Welder Tack Relationship Specialty Start Date End Date None Reported, Pcp PCP - General 05/30/24
--- NOTE | 2024-11-09 12:27 | CRLHL7_ITS ---
For Patients: As a result of the Century Cures Act, medical imaging exams and procedure reports are released immediately into your electronic medical record. You may view this report before your referring provider. If you have questions, please contact your health care provider. Indication: CONCERN FOR OCCULT TIBIAL PLATEAU INJURY WELL PATELLA Technique: CT right knee without IV contrast Comparison: Same day right knee radiograph Findings: No acute fracture or malalignment. Trace suprapatellar joint effusion. Tricompartmental osteoarthritic degenerative changes to include patellofemoral and medial compartment joint space narrowing with mild subchondral sclerosis and tricompartmental osteophyte formation. Os fabella. There are some small degenerative cysts seen along the posterior margin of the tibia. No suspicious osseous lesions. Small subcutaneous hematoma seen in the subcutaneous fat of the anterior knee at the level of the proximal tibia measuring approximately 4.5 centimeters in greatest dimension. The vasculature is unremarkable. Impression: 1. No acute fracture or malalignment. 2. Trace knee joint effusion. 3. Small hematoma in the subcutaneous fat at the level of the proximal tibia. 4. Tricompartmental osteoarthritic degenerative changes. Please note that all CT scans at this facility use dose modulation, iterative reconstruction, and/or weight-based dosing when appropriate to reduce radiation dose to as low as reasonably achievable. Dictated by Getachew Santacruz MD @ 11/09/2024 2:22:50 PM (Electronically Signed)
[2024-11-09 13:49] VITALS: BP 134/91; PULSE 76; RESP 16; O2SAT 96
== END 2024-11-09 14:56 | disposition home or self-care (01) ==
PROVIDERS: Emergency Provider Family Medicine; PCP Family Medicine
DX: S80.01XA Contusion of right knee, initial encounter (principal); R22.41 Localized swelling, mass and lump, right lower limb; W54.1XXA Struck by dog, initial encounter
CPT/HCPCS: 73560; 73700; 93971; 99283; 99284; 99285

== ENCOUNTER 2025-03-23 19:26 | Emergency (ER) | payer OTHER, MEDICAID, SELFPAY ==
[2025-03-23] VITALS (23 sets, daily range): BP systolic 99–124; BP diastolic 64–84; PULSE 73–94; RESP 10–25; TEMP 36.8; O2SAT 90–100; BMI 24.7
--- OUTSIDE RECORDS SUMMARY | 2025-03-23 19:27 | XMS_ITS | Continuity of Care Document ---
Author Name [facility] Organization [facility] Care Team Providers Care Machine Operator Hay Stacker Name Role Phone [facility] Unavailable Unavailable Social History Combined list of available smoking, tobacco, and other social history from Department of Defense and Veterans Affairs facilities. Social History Type Response Date Comment Sourc e This section is an empty social history section. [facility]
--- OUTSIDE RECORDS SUMMARY | 2025-03-23 19:27 | XMS_ITS | Continuity of Care Document ---
Author Name [facility] Organization [facility] Care Team Providers Care Strategic Planning Consultant Name Role Phone [facility] Unavailable Unavailable Social History Combined list of available smoking, tobacco, and other social history from Department of Defense and Veterans Affairs facilities. Social History Type Response Date Comment Sourc e This section is an empty social history section. [facility]
--- OUTSIDE RECORDS SUMMARY | 2025-03-23 19:28 | XMS_ITS | Encounter Summary ---
Author Organization [facility] Address [address] [place] [address] Care Team Providers Care Picture Booker Name Role Phone No Primary/Referring, Phy Primary [...] on file documented as of this encounter Functional Status documented as of this encounter Plan of Treatment Not on file documented as of this encounter Visit Diagnoses Not on filedocumented in this encounter Care Teams Picture Booker Relationship Specialty Start Date End Date No Primary/ReferringMohit PCP - General 05/05/19 documented as of this encounter
--- OUTSIDE RECORDS SUMMARY | 2025-03-23 19:28 | XMS_ITS | Encounter Summary ---
Author Organization [facility] Address [address] [place] [address] Care Team Providers Care Office System Analyst Name Role Phone No Primary/Referring, Phy Primary [...] on filedocumented in this encounter Care Teams Office System Analyst Relationship Specialty Start Date End Date No Primary/ReferringMohit PCP - General 05/05/19 documented as of this encounter
--- OUTSIDE RECORDS SUMMARY | 2025-03-23 19:28 | XMS_ITS | Clinical Summary ---
Author Organization [facility] Address [address] [place] [address] Care Team Providers Care Landscaping Crew Leader Name Role Phone None Reported, Pcp Primary Care Provider Unavail able Source Comments Patient records contain information from all sites at [facility]. For routine questions regarding patient records, call [phone] during business hours, M-F 8:00 AM - 5:00 PM Central Time. Record requests for emergency care only can be directed to [phone] at any time.[facility] Allergies No known active allergies Medications No known medications Social History Tobacco Use Types Packs/Day Years Used Date Smoking Tobacco: Every Day Cigarettes Smokeless Tobacco: Never Alcohol Use Standard Drinks/Week Comments Yes 12 (1 standard drink = 0.6 oz pu re alcohol) Comments No Sex and Gender Information Value Date Recorded Sex Assigned at Not on file Legal Sex Female 10:51 AM HANSARD REPORTER Gender Identity Not on file Sexual Orientation [...] 12/18/2021 Mammogram 02/22/2022 02/22/2021 COVID-19 Vaccine ( season) 2024 09/17/2023, 04/28/2022, 08/18/2021, Additional history exists Depression Screening (Annual PHQ-2) 07/23/2024 Influenza Vaccine (#1) 2025 , 04/28/2022, 10/01/2020, Additional history exists Fasting Glucose for Diabetes Screening 01/28/2027 01/29/2024, [...] Generic Rals LAB POCT ORDERABLES-MANUAL Final Result [facility] [address] [address], [facility] [address] [phone] from Last 3 Months or Most Recently Relevant to Health Maintenance Insurance Care Teams Landscaping Crew Leader Relationship Specialty Start Date End Date None Reported, Pcp PCP - General 05/30/24
--- OUTSIDE RECORDS SUMMARY | 2025-03-23 19:28 | XMS_ITS | Clinical Summary ---
Author Organization [facility] Address [address] [place] [address] Care Team Providers Care Payroll Examiner Name Role Phone No Primary/Referring, Phy Primary Care Provider Unavailable Source Comments You are receiving this document as you are listed as the primary care provider,follow-up provider, or the patient has been referred to you for consultation.This is in compliance with the Medicare and[facility] EHR Incentive Program,which states Providers who transition their patient to another setting of careor provider of care or refers their patient to another provider of care shouldprovide summary care record for each transition of care or referral. [facility] Allergies No known active allergies Medications hydrOXYzine [...] Comments Blood Pressure 121/67 06/10/2019 4:00 PM FOUNDATION DIRECTOR Pulse 104 06/10/2019 4:00 PM FOUNDATION DIRECTOR Temperature 37.1 C (98.8 F) 06/10/2019 4:00 PM FOUNDATION DIRECTOR Respiratory Rate 18 06/10/2019 4:00 PM FOUNDATION DIRECTOR Oxygen Saturation 97% 06/10/2019 4:00 PM FOUNDATION DIRECTOR Inhaled Oxygen Concentration - - Weight 85.7 kg (189 lb) 06/04/2019 11:00 PM FOUNDATION DIRECTOR Height 170.2 cm (5' 7) 06/04/2019 11:00 PM FOUNDATION DIRECTOR Body Mass Index 29.6 06/04/2019 11:00 PM FOUNDATION DIRECTOR Plan of Treatment Health Maintenance Due [...] (1 - season) 2024 Influenza Vaccine (#1) 2025 9, 05/10/2018, 06/26/2017, Additional history exists HepA [...] 2:22 AM 05/09/2019 5:08 PM Care Teams Payroll Examiner Relationship Specialty Start Date End Date No Primary/Referring, Phy PCP - General 05/05/19
--- OUTSIDE RECORDS SUMMARY | 2025-03-23 19:29 | XMS_ITS | Encounter Summary ---
Author Organization [facility] Address [address] [place] [address] Care Team Providers Care Mechanic/Welder Name Role Phone No Primary/Referring, Phy Primary [...] on filedocumented in this encounter Care Teams Mechanic/Welder Relationship Specialty Start Date End Date No Primary/ReferringMohit PCP - General 05/05/19 documented as of this encounter
--- OUTSIDE RECORDS SUMMARY | 2025-03-23 19:29 | XMS_ITS | Clinical Summary ---
Author Organization [employer] [facility] Address [address] [place] [id number] Care Team Providers Care Youth Support Worker Name Role Phone Renetta Geller MD Primary Care Provide r Allergies No known active allergies Medications inhalational spacing deviceIndication s:Acute bronchitis with bronchospasm For home use. 1 Each 08/23/19 23 Active albuterol HFA (PRO-AIR; VENTOLIN; PROVENTIL) 90 mcg/actuation inhalerIndicatio ns:Acute bronchitis with bronchospasm Inhale 1 Puff by mouth every 4 hours if needed for Shortness Of Breath or Wheezing. 8.5 g 1 06/06/20 24 Active omeprazole 20 mg Delayed-Release capsuleIndicatio ns:Abdominal pain, epigastric Take 1 Capsule (20 mg) by mouth once daily before a meal. Take 30 minutes prior to a meal 60 Capsule 3 01/07/20 25 Active naltrexone 50 mg tabletIndication s:Abdominal pain, epigastric Take 1 Tablet (50 mg) by mouth once daily. 60 Tablet 3 01/07/20 25 Active venlafaxine (EFFEXOR XR) 150 mg Extended-Release capsuleIndicatio ns:Major depressive disorder, recurrent, moderate (HC) Take 1 Capsule (150 mg) by mouth once daily with evening meal. 90 Capsule 1 03/14/20 25 Active venlafaxine 150 mg Extended-Release capsuleIndicatio ns:Major depressive disorder, recurrent, moderate (HC) TAKE ONE CAPSULE BY MOUTH ONE TIME DAILY IN THE EVENING WITH FOOD 90 Capsule 11/11/19 25 025 Discontinued Hospital, Clinic, or Other Facility Administered Medication [...] Encounters Date Type Department Care Team Description 03/12/2025 Refill [facility] [address] [place] [address] Renetta Geller MD Refill Request (Venlafaxine) 01/21/2025 Nurse Triage [facility] [address] [place] [address] Renetta Geller MD Derm Problem (Started as an ingrown hair/pimple that she thinks is infected.) 01/19/2025 Telephone [facility] [address] [place] [address] Renetta Geller MD Abnormal Lab Results 01/13/2025 8:15 AM CDT Orders Only [facility] [address] [place] [address] Lab, [place] [facility] 01/13/2025 Travel 01/08/2025 Telephone [facility] [address] [place] [address] Renetta Geller MD Lab (reschedule) 01/07/2025 10:30 AM CDT Ancillary Procedure [facility] [address] 01/06/2025 1:50 PM CDT Office Visit [facility] [address] [place] [address] Renetta Geller MD Blood In Stool (Having pain on the right side, abdominal. Coffee and alcohol make it worse. Watery stool.) 01/06/2025 Travel from Last 3 Months Immunizations Immunization Administration Dates Next Due AMB Influenza, IIV3 (Age >=3 years)(Flu Clinic Only) 06/05/2008 AMB Influenza, IIV4 PF (=>6 mos Flulaval,Fluzone Fluarix)(Flu Clinic Only) 05/10/2018,07/01/2014 COVID-19 VACCINE SPIKEVAX (M ODERNA 50MCG/0.5ML) 12YO+ PFS 07/14/2024,09/17/2023 COVID-19 vaccine (Moderna 100mcg/0.5mL) PF, MDV 12/08/2020,11/10/2020 COVID-19 vaccine (Moderna Drew karuna 50mcg/0.25mL) PF, MDV 08/18/2021 COVID-19 vaccine (Pfizer-Bio NTech 30mcg/0.3mL) 12YO+ BIVALENT PF, MDV 04/28/2022 INFLUENZA, IIV3 PF (AGE >= 6 MO) 07/14/2024 Influenza, IIV3 (Age >=3 years) 06/03/2012,07/01 Influenza, IIV4 09/17/2023, 2,10/01/2020,2018,06/26/2017,06/30/2015 MMR 11/29/2010 Pneumococcal Conj 20-valent (Prevnar 20) [...] Date Smoking Tobacco: Every Day Cigarettes 0.5 6.7 Started: 2018 Smokeless Tobacco: Never Tobacco Cessation:Ready to Q uit: No; Counseling Given: No Comments:10 cigs per day Alcohol Use Standard Drinks/Week Comments Yes 0 (1 standard drink = 0.6 oz pur e alcohol) 4-5 a week PHQ-2 Answer Date Recorded PHQ-2 TOTAL SCORE 2 01/06/2025 Social Connections Answer Date Recorded Do you [...] on file Legal Sex Female 6:16 AM INSURANCE HEALTHCARE REPRESENTATIVE Gender Identity Not on file Sexual Orientation Not on file Obstetrics History Para Term AB IAB SAB Ectopic Multiple Livin g Live Births 1 1 1 0 0 0 0 0 1 Date Outcome GA Total Labor Labor/2nd/3rd Weight Sex Type Anes PTL Erin A1 A5 Name Clin Term Last Filed Vital Signs Vital Sign Reading Time Taken Comments Blood Pressure 118/75 01/06/2025 2:11 PM CDT Pulse 94 01/06/2025 2:11 PM CDT Temperature 37 C (98.6 F) 12/12/2023 1:47 PM CDT Respiratory Rate 16 06/08/2023 10:04 AM INSURANCE HEALTHCARE REPRESENTATIVE Oxygen Saturation 100% 01/06/2025 2:11 PM CDT Inhaled Oxygen Concentration - - Weight 71.7 kg (158 lb) 01/06/2025 2:11 PM CDT Height 170.2 cm (5' 7) 01/06/2025 2:11 PM CDT Body Mass Index 24.75 01/06/2025 2:11 PM CDT Plan of Treatment Health Maintenance Due Date Last Done Comments Hepatitis B series for 19+ ( 1 of 3 - 19+ 3-dose series) 12/18/1990 Zoster (shingles) series for age 50+ (1 of 2) 12/18/2021 Mammogram for age 45-75 06/12/2023 06/12/20 22, 02/22/2021, 08/16/2018, Additional history exists Pap test for age 21-65 09/24/2023 9, 09/23/2018, 06/26/2017, Additional history exists Influenza Vaccine (#1) 2025 4, 09/17/2023, 04/28/2022, Additional history exists BMI (ht and wt on same day) for age 18+ 01/06/2026 01/06/2025, 11/07/2022, 04/28/2022, Additional history exists Depression screening for age 12+ 01/07/2026 01/07/2025, 01/06/2025, 08/10/2023, Additional history exists Lipids for age 45-75 04/28/2027 04/28/2022, 05/10/2017, 08/16/2006, Additional history exists Colonoscopy through age 75 11/28/202711/27, 10/01/2018, 10/01/2018, Additional history exists Tetanus booster 02/17/2031 02/17/2021, 05, 04/06/2004 RSV vaccine for adults or (1 - 1-dose 75+ series) 12/18/2046 Hepatitis C screening for ag e 18-79 Completed 02/17/2021, 09/28/2020, 02/26/2020, Additional history exists HIV for age 15-65 Completed 02/22/2023, , 11/01/2021, Additional history exists Pneumococcal series for age 50+ Completed COVID-19 vaccine series Completed 07/14/20 24, 09/17/2023, 04/28/2022, Additional history exists Procedures Procedure Name Priority Date/Time Associated Diagnosis Comments ENDOMYSIAL ANTIBODY IGA Routine 01/13/2025 8:24 AM CDT CBC WITH AUTO DIFFERENTIAL Routine 01/13/2025 8:24 AM CDT Chronic diarrhea COMP METABOLIC PANEL Routine 01/13/2025 8:24 AM CDT Chronic diarrhea TSH WITH REFLEX Routine 01/13/2025 8:24 AM CDT Chronic diarrhea CELIAC CASCADE PANEL Routine 01/13/2025 8:24 AM CDT Chronic diarrhea CT ABDOMEN PELVIS W ALFONZO 01/07/2025 1 1:37 AM CDT Abdominal pain, RLQ (right lower quadrant) LC HIV-1/O/2, 4TH GENERATION Routine 02/22/2023 8:23 AM CDT Screening for STDs (sexually transmitted diseases) COLONOSCOPY 11/27/2022 2:15 PM CDT XR MAMMO BILAT SCREENING Routine 06/12/2022 8:39 AM INSURANCE HEALTHCARE REPRESENTATIVE Visit for screening mammogram LIPID PANEL W REFLEX MEASURED LDL Routine 04/28/2022 9:17 AM CDT Lipid screening ANTI HCV Routine 02/17/2021 10:07 AM CDT Screening examination for STD (sexually transmitted disease) PAYROLL ADMINISTRATIVE ASSISTANT THIN PREP PAP SCREEN IMAGED Routine 09/23/2018 12:00 PM INSURANCE HEALTHCARE REPRESENTATIVE from Last 3 Months or Most Recently Relevant to Health Maintenance Results * (ABNORMAL) CELIAC CASCADE PANEL (01/13/2025 8:24 AM CDT) CELIAC DISEASE COMPREHENSIVE PANEL INTERPRETATION [facility] Comment: Consistent with celiac disease, but not confirmed by JUN IFA. Recommend correlation with clinical, radiographic and endoscopic findings. TISSUE TRANSGLUTAMINASE AB, IGA 62.9(H) U/mL [facility] Comment: Value Interpretation ----- <15.0 Antibody not detected > or = 15.0 Antibody detected IMMUNOGLOBULIN A 281 47 - 310 mg/dL [facility] Blood BLOOD SPECIMEN / Unknown 01/13/2025 8:24 AM CDT 01/13/2025 8:24 AM CDT Renetta Geller MD SEND OUTS Final Result Performing Organization Address City/[facility]/ZIP Co de Phone Number [employer] [address] [address], [place] [phone] [facility] [address] [place] [phone] * ENDOMYSIAL ANTIBODY IGA (01/13/2025 8:24 AM CDT) ENDOMYSIAL ANTIBODY SCR (IGA) W/REFL TO TITER NEGATIVE NEGATIVE [facility] 01/13/2025 8:24 AM CDT 01/13/2025 8:24 AM CDT Renetta Geller MD SEND OUTS Final Result [facility] [address] [place] [phone], [facility] [address] [place] [address] * TSH WITH REFLEX (01/13/2025 8:24 AM CDT) [facility] TSH W/REFLEX TO FT4 1.91 mIU/L [facility] Comment: Reference Range > or = 20 Years 0.40-4.50 Ranges First trimester 0.26-2.66 Second trimester 0.55-2.73 Third trimester 0.43-2.91 Blood BLOOD SPECIMEN / Unknown 01/13/2025 8:24 AM CDT 01/13/2025 8:24 AM CDT Renetta Geller MD CHEMISTRY Final Result [employer] [facility] [address] [place] [phone], [employer] [facility] [address] [place] [phone] * (ABNORMAL) CBC AND DIFFERENTIAL (01/13/2025 8:24 AM CDT) [facility] WHITE BLOOD CELL COUNT 6.3 3.8 - 10.8 Thousand/u L [facility] RED BLOOD CELL COUNT 4.24 3.80 - 5.10 Million/uL [facility] HEMOGLOBIN 12.9 11.7 - 15.5 g/dL [facility] HEMATOCRIT 40.8 35.0 - 45.0 % [facility] MCV 96.2 80.0 - 100.0 fL [facility] MCH 30.4 27.0 - 33.0 pg [facility] MCHC 31.6(L) 32.0 - 36.0 g/dL [facility] Comment: For adults, a slight decrease in the calculated MCHC value (in the range of 30 to 32 g/dL) is most likely not clinically significant; however, it should be interpreted with caution in correlation with other red cell parameters and the patient's clinical condition. RDW 13.6 11.0 - 15.0 % [facility] PLATELET COUNT 327 140 - 400 Thousand/u L [facility] MPV 9.4 7.5 - 12.5 fL [facility] ABSOLUTE NEUTROPHILS 3,163 1,500 - 7,800 cells/uL [facility] ABSOLUTE LYMPHOCYTES 2,375 850 - 3,900 cells/uL [facility] ABSOLUTE MONOCYTES 592 200 - 950 cells/uL [facility] ABSOLUTE EOSINOPHILS 132 15 - 500 cells/uL [facility] ABSOLUTE BASOPHILS 38 0 - 200 cells/uL [facility] NEUTROPHILS 50.2 % [facility] LYMPHOCYTES 37.7 % [facility] MONOCYTES 9.4 % [facility] EOSINOPHILS 2.1 % [facility] BASOPHILS 0.6 % [facility] Blood BLOOD SPECIMEN / Unknown 01/13/2025 8:24 AM CDT 01/13/2025 8:24 AM CDT Renetta Geller MD HEMATOLOGY Final Result [facility] [address] [place] [address], [facility] [address] [place] [address] * COMP METABOLIC PANEL (01/13/2025 8:24 AM CDT) Pathologist [facility] GLUCOSE 86 65 - 99 mg/dL [facility] Comment: Fasting reference interval UREA NITROGEN (BUN) 12 7 - 25 mg/dL [facility] CREATININE 0.64 0.50 - 1.03 mg/dL [facility] EGFR 106 > OR = 60 mL/min/1. 73m2 [facility] BUN/CREATININE RATIO SEE NOTE: 6 (calc) [facility] Comment: Not Reported: BUN and Creatinine are within reference range. SODIUM 140 135 - 146 mmol/L [facility] POTASSIUM 4.5 3.5 - 5.3 mmol/L [facility] CHLORIDE 104 98 - 110 mmol/L [facility] CARBON DIOXIDE 30 20 - 32 mmol/L [facility] CALCIUM 9.1 8.6 - 10.4 mg/dL [facility] PROTEIN, TOTAL 7.2 6.1 - 8.1 g/dL [facility] ALBUMIN 4.3 3.6 - 5.1 g/dL [facility] GLOBULIN 2.9 1.9 - 3.7 g/dL (calc) [facility] ALBUMIN/GLOBULIN RATIO 1.5 1.0 - 2.5 (calc) [facility] BILIRUBIN, TOTAL 0.5 0.2 - 1.2 mg/dL [facility] ALKALINE PHOSPHATASE 97 37 - 153 U/L [facility] AST 23 10 - 35 U/L [facility] ALT 15 6 - 29 U/L [facility] Blood BLOOD SPECIMEN / Unknown 01/13/2025 8:24 AM CDT 01/13/2025 8:24 AM CDT us Renetta Geller MD CHEMISTRY Final Result [facility] [address] [place] [address], [place] [phone] [facility] [address] [place] [address] * CT ABDOMEN PELVIS W (01/07/2025 11:37 AM CDT) Anatomical Region Laterality Modality Abdomen, Pelvis, AORTA, LIVER, SPLEEN Computed Tomography 01/07/2025 6:51 PM CDT Impressions 01/07/2025 6:51 PM CDT 1. No acute intra-abdominal pathology. Please note that all CT scans at this facility use dose modulation, iterative reconstruction, and/or weight-based dosing when appropriate to reduce radiation dose to as low as reasonably achievable. Dictated by Davy Burr MD @ 01/07/2025 6:51:52 PM (Electronically Signed) Narrative 01/07/2025 6:51 PM CDT For Patients: As a result of the Cures Act, medical imaging exams and procedure reports are released immediately into your electronic medical record. You may view this report before your referring provider. If you have questions, please contact your health care provider. INDICATION: Right lower quadrant abdominal pain. TECHNIQUE: CT abdomen and pelvis acquired with 100 cc Omnipaque 350 intravenous contrast. Coronal and sagittal reformats were obtained. COMPARISON: CT abdomen/pelvis from 09/12/2018. FINDINGS: Lower chest: Within normal limits. Liver: Within normal limits. Spleen: Within normal limits. Pancreas: Within normal limits. Gallbladder and bile ducts: Within normal limits. Kidneys: Within normal limits. Adrenal glands: Within normal limits. Bowel: Within normal limits. Vascular: Within normal limits. Lymph nodes: Within normal limits. Peritoneum: Within normal limits. Pelvis: IUD is situated within the uterine fundus. Bones: Within normal limits. Abdominal wall: Interval repair of the previously seen periumbilical hernia. Procedure Note Davy Burr MD - 01/07/2025 For Patients: As a result of the Cures Act, medical imagingexams and procedure reports are released immediately into your electronicmedical record. You may view this report before your referring provider.If you have questions, please contact your health care provider. INDICATION: Right lower quadrant abdominal pain. TECHNIQUE: CT abdomen and pelvis acquired with 100 cc Omnipaque 350 intravenouscontrast. Coronal and sagittal reformats were obtained. COMPARISON: CT abdomen/pelvis from 09/12/2018. FINDINGS: Lower chest: Within normal limits. Liver: Within normal limits. Spleen: Within normal limits. Pancreas: Within normal limits. Gallbladder and bile ducts: Within normal limits. Kidneys: Within normal limits. Adrenal glands: Within normal limits. Bowel: Within normal limits. Vascular: Within normal limits. Lymph nodes: Within normal limits. Peritoneum: Within normal limits. Pelvis: IUD is situated within the uterine fundus. Bones: Within normal limits. Abdominal wall: Interval repair of the previously seen periumbilicalhernia. IMPRESSION: 1. No acute intra-abdominal pathology. Please note that all CT scans at this facility use dose modulation,iterative reconstruction, and/or weight-based dosing when appropriate toreduce radiation dose to as low as reasonably achievable. Dictated by Davy Burr MD @ 01/07/2025 6:51:52 PM (Electronically Signed) us Renetta Geller MD CT Final Result * LC HIV-1/O/2, 4TH GENERATION (02/22/2023 8:23 AM CDT) HIV Scr 4th Gen Non Reactive Non Reactive 02/24/2023 11:[address] [facility] Comment: HIV Negative HIV-1/HIV-2 antibodies and HIV-1 p24 antigen were NOT detected. There is no laboratory evidence of HIV infection. Blood BLOOD SPECIMEN / Unknown Venipuncture / Unknown 02/22/2023 8:23 AM CDT 02/22/2023 8:23 AM CDT Narrative [facility] ([facility]) - 02/24/2023 11:08 AM CDT Performed at: [address] [place] [phone] Events Specialist: Brock Park MD, Phone: [phone] [facility] Final Result [facility] [address] [place] [address], * COLONOSCOPY (11/27/2022 2:15 PM CDT) 11/27/2022 [...] XR MAMMO BILAT SCREENING (06/12/2022 8:39 AM INSURANCE HEALTHCARE REPRESENTATIVE) Anatomical Region Laterality Modality BREASTS, Breast Left, Breast Right Bilateral Mammography Impressions 06/12/2022 1:51 PM INSURANCE HEALTHCARE REPRESENTATIVE There is no radiographic evidence for malignancy. Recommend annual mammograms. MAMMOGRAM ASSESSMENT: ACR 1 Negative PATIENTS: You will also receive a letter with your examination results in an easy to read format. If you have questions about your results, please contact your referring provider. Narrative 06/12/2022 1:51 PM INSURANCE HEALTHCARE REPRESENTATIVE For Patients: As a result of the Century Cures Act, medical imaging exams and procedure reports are released immediately into your electronic medical record. You may view this report before your referring provider. If you have questions, please contact your health care provider. XR MAMMO BILAT SCREENING [[id number]] CLINICAL HISTORY: This is an asymptomatic 51 y.o. patient. INDICATION FOR EXAM: Mammogram Screening. TECHNIQUE: CC & MLO views were obtained. This study was evaluated with the assistance of Computer-Aided Detection. COMPARISON FILM: Yes 02/22/21 [employer] [facility] 08/16/18 [employer] FINDINGS: The breasts have scattered areas of fibroglandular density. There are no dominant masses, suspicious micro calcifications or areas of architectural distortion. us Renetta Geller MD MAMMO Final Result * LIPID PANEL W REFLEX MEASURED LDL (04/28/2022 9:17 AM CDT) CHOLESTEROL,TOTAL 174 100 - 199 mg/dL 04/29/2022 7:56 AM CDT [facility] TRIGLYCERIDES 62 <150 mg/dL 04/29/2022 7:56 AM CDT [facility] HDL CHOLESTEROL 66 >40 mg/dL 7:56 AM CDT [facility] NON-HDL CHOLESTEROL 108 <145 mg/dl 04/29/2022 7:56 AM CDT [facility] CHOL/HDL RATIO 2.64 <4.50 04/29/2022 7:56 AM CDT [facility] LDL CHOLESTEROL 96 <=130 mg/dL 04/29/2022 7:56 AM CDT [facility] VLDL CHOLESTEROL 12 <=30 mg/dL 04/29/2022 7:56 AM CDT [facility] PROVIDER ORDERED STATUS RANDOM 04/29/2022 7:56 AM CDT [facility] Blood BLOOD SPECIMEN / Unknown Venipuncture / Unknown 04/28/2022 9:17 AM CDT 04/28/2022 9:17 AM CDT us Kimberly Steel MD CHEMISTRY Final Resul t [facility] [address] [place] [address], [facility] [address] [place] [address], * ANTI HCV (02/17/2021 10:07 AM CDT) HEPATITIS C ANTIBODY Non-React brenna Non-React brenna 02/17/2021 5:05 PM CDT [facility] Comment:Antibodies to HCV no t detected; does not exclude the possibility of exposure to HCV. Blood BLOOD SPECIMEN / Unknown Venipuncture / Unknown 02/17/2021 10:07 AM CDT 02/17/2021 10:09 AM CDT us Renetta Geller MD SEND OUTS Final Result [facility] [address] [place] [address], [place] * PAYROLL ADMINISTRATIVE ASSISTANT THIN PREP PAP SCREEN IMAGED (09/23/2018 12:00 PM INSURANCE HEALTHCARE REPRESENTATIVE) Case Report Gynecologic Cytology Report Case: [id number] Authorizing Provider: Amelia Nichols Collected: 09/23/2018 1200 MMD Ordering Location: [facility] Received: 09/25/2018 1335 First Screen: Anitha Giang Specimen: PAYROLL ADMINISTRATIVE ASSISTANT ThinPrep Vial Screening, Cervical/Vaginal 09/30/2018 10:23 AM CDT [facility] INTERPRETATION/ RESULT NEGATIVE FOR INTRAEPITHELIAL LESION OR MALIGNANCY (NIL) (none) 09/30/2018 10:23 AM CDT [facility] at 1023 CDT SPECIMEN ADEQUACY Satisfactory for evaluation Endocervical component present 09/30/2018 10:23 AM CDT [facility] HPV REQUEST HPV and PAP 09/30/2018 10:23 AM CDT [facility] Date of LMP 08/23/2018 09/30/2018 10:23 AM CDT [facility] Last Pap Result First Pap/Unknown 10:23 AM CDT [facility] Automated Review Successful 09/30/2018 10:23 AM CDT [facility] Comment:Specimen processed s uccessfully by automated president financial institution device, ThinPrep Imaging System, [employer] ANCILLARY TESTING PAYROLL ADMINISTRATIVE ASSISTANT HPV Ordered, Please see separate report 09/30/2018 10:23 AM CDT [facility] Note The pap test is a [...] lesions. Cytology is screened and interpreted at [facility] - [address], [place] [address] and [facility] - [address]; [place] [address] and [facility] - [address]; [place] [address] and [facility] [address]; [place] [address] 09/30/2018 10:23 AM CDT [facility] Other (Cervical/Vagina l) 09/23/2018 12:00 PM INSURANCE HEALTHCARE REPRESENTATIVE 09/25/2018 1:35 PM INSURANCE HEALTHCARE REPRESENTATIVE us Amelia Nichols MD PATHOLOGY/CYTOLOGY Final Result [facility] [address] [place] [address], [place] from Last 3 Months or Most Recently Relevant to [place] [id number] [facility] Advance Directives * Full Code (Latest Code [...] Preferences, Provider to review later Care Teams Youth Support Worker Relationship Specialty Start Date End Date Renetta Geller MD [address] [place] [address] PCP - General 08/09/06
[2025-03-23] MEDS: ONDANSETRON 2 MG/ML inj 4 MG IVP (19:30)
--- NOTE | 2025-03-23 19:58 | ED.PSYCH ---
HPI - Psych General Chief Complaint: Psychiatric Problem/Disorder Stated Complaint: suicidal/Mental Health Time Seen by Provider: 03/23/25 19:44 History of Present Illness HPI Narrative: This 54-year-old female comes in by ambulance sedated after receiving 5 mg of Versed intravenously. Ambulance was called her facility because she was reported to be suicidal. She had a large amount of vodka a and there was a report that she had taken an AV cord and wrapped it around her neck. She does not have any sign of injury to her neck. She was initially cooperative with ambulance but when they began to arrange for bringing her in here she became combative and started banging her head against a wall. She then received Versed and continues to be sedated upon arrival here. Related Data Home Medications ?Medication ?Instructions ?Recorded ?Confirmed albuterol sulfate 90 mcg/actuation 1 puff inhalation Q4H PRN 09/25/22 11/09/24 aerosol inhaler aripiprazole 2 mg tablet 2 mg PO DAILY 09/25/22 12/21/22 venlafaxine 150 mg 150 mg PO DAILY 09/25/22 11/09/24 capsule,extended release 24 hr Previous Rx's ?Medication ?Instructions ?Recorded ketorolac 10 mg tablet 10 mg PO Q8H 5 days #15 tabs 09/25/22 ondansetron HCl 4 mg tablet 4 mg PO Q6H #10 tabs 09/25/22 ketorolac 10 mg tablet 10 mg PO Q8H 5 days #15 tabs 07/17/23 polymyxin B sulfate 10,000 1 drp ophthalmic (eye) Q3H 7 days 07/17/23 unit-trimethoprim 1 mg/mL eye drops #10 mL valacyclovir 1 gram tablet 1,000 mg PO TID #15 tabs 07/17/23 (Valtrex) Allergies Allergy/AdvReac Type Severity Reaction Status Date / Time No Known Drug Allergies Allergy Verified 11/09/24 11:50 Review of Systems Status of ROS: Reports: unobtainable due to mental status [facility] Medical History (Updated 03/23/25 @ 20:12 by Abby Armenta RN) Moderate episode of recurrent major depressive disorder ?F33.1 - Major depressive disorder, recurrent, moderate (ICD-10) BONNIE (generalized anxiety disorder) ?F41.1 - Generalized anxiety disorder (ICD-10) Alcohol abuse ?F10.10 - Alcohol abuse, uncomplicated (ICD-10) Gastritis ?K29.70 - Gastritis, unspecified, without bleeding (ICD-10) Polycystic ovaries ?E28.2 - Polycystic ovarian syndrome (ICD-10) Surgical History (Updated 03/23/25 @ 20:12 by Abby Armenta RN) H/O ventral hernia repair ?Z98.890 - Other specified postprocedural states (ICD-10) ?Z87.19 - Personal history of other diseases of the digestive system (ICD-10) H/O section ?Z98.891 - History of uterine scar from previous surgery (ICD-10) Social History Smoking Status: Current some day smoker What tobacco products do you use: cigarettes How often do you have a drink containing alcohol: 4 or more times a week How many standard drinks containing alcohol do you have on a typical day: 3 or 4 AUDIT-C Alcohol total score: 5 Non-prescribed substance use: marijuana (any form) and crack/cocaine service: No Exam Narrative: Exam Narrative: Constitutional: Well-developed, well-nourished, no acute distress. HEENT: Normocephalic, atraumatic. Neck: Normal range of motion. Nontender. Supple. Heart: Regular. No murmurs. Normal rate. Intact distal pulses. Lungs: Clear to auscultation. No chest discomfort. No wheezes, rhonchi, or rales. Abdomen: Normal bowel sounds. Nontender. No rebound tenderness. Genitalia: Deferred. Back: No midline tenderness. Normal range of motion. Extremities: Normal range of motion. No injury. Skin: Intact. No rash. Warm. No erythema or pallor. Neurologic: No altered sensation. No weakness. Alert and oriented. Psychiatric: No suicidality. No anxiety or depression. No insomnia. Nursing notes and vitals signs are reviewed. Const: Vital Signs, click to edit/add: Vital Signs - 24 hr 03/23/25 19:30 03/23/25 19:42 03/23/25 19:45 Temperature 98.3 F Pulse Rate 88 79 Pulse Rate [Left P ulse Oximeter] 77 Respiratory Rate 17 22 23 Blood Pressure Blood Pressure [Ri ght Upper Arm] 124/84 Pulse Oximetry 97 90 100 Oxygen Delivery Me od Room Air 03/23/25 20:00 03/23/25 20:15 03/23/25 20:30 Temperature Pulse Rate 81 76 74 Pulse Rate [Left P ulse Oximeter] Respiratory Rate 18 17 16 Blood Pressure Blood Pressure [Ri ght Upper Arm] Pulse Oximetry 100 100 [facility] 20:45 03/23/25 20:53 03/23/25 21:00 Temperature Pulse Rate 83 94 89 Pulse Rate [Left P ulse Oximeter] Respiratory Rate 17 25 H 10 L Blood Pressure 120/77 Blood Pressure [Ri ght Upper Arm] Pulse Oximetry 100 100 [facility] 03/23/25 21:02 03/23/25 21:15 03/23/25 21:30 Temperature Pulse Rate 81 80 79 Pulse Rate [Left P ulse Oximeter] Respiratory Rate 13 16 Blood Pressure 120/79 Blood Pressure [Ri ght Upper Arm] Pulse Oximetry 100 100 [facility] 03/23/25 21:45 03/23/25 22:00 03/23/25 22:02 Temperature Pulse Rate 80 75 76 Pulse Rate [Left P ulse Oximeter] Respiratory Rate 16 16 15 Blood Pressure 101/64 Blood Pressure [Ri ght Upper Arm] Pulse Oximetry 100 100 [facility] 03/23/25 22:15 03/23/25 22:30 03/23/25 22:45 Temperature Pulse Rate 77 75 76 Pulse Rate [Left P ulse Oximeter] Respiratory Rate 16 16 11 L Blood Pressure Blood Pressure [Ri ght Upper Arm] Pulse Oximetry 100 100 [facility] 03/23/25 23:00 03/23/25 23:02 03/23/25 23:15 Temperature Pulse Rate 75 74 74 Pulse Rate [Left P ulse Oximeter] Respiratory Rate 10 L 21 13 Blood Pressure 99/67 Blood Pressure [Ri ght Upper Arm] Pulse Oximetry 100 100 100 Oxygen Delivery Me od Course Vital Signs Vital signs: Initial Vital Signs Temperature 98.3 F 03/23/25 19:30 Temperature Source Temporal Artery Scan 03/23/25 19:30 Pulse Rate 77 03/23/25 19:30 Respiratory Rate 17 03/23/25 19:30 Blood Pressure 124/84 03/23/25 19:30 Blood Pressure Mean 97 03/23/25 19:30 Blood Pressure Position Semi-Fowlers 03/23/25 19:30 Pulse Oximetry 97 03/23/25 19:30 Oxygen Delivery Method Room Air 03/23/25 19:30 Vital Signs Temperature 98.3 F 03/23/25 19:30 Pulse Rate 77 03/23/25 19:30 Respiratory Rate 17 03/23/25 19:30 Blood Pressure 124/84 03/23/25 19:30 Pulse Oximetry 97 03/23/25 19:30 Oxygen Delivery Method Room Air 03/23/25 19:30 Temperature 98.3 F 03/23/25 19:30 Pulse Rate 74 03/23/25 23:15 Respiratory Rate 13 03/23/25 23:15 Blood Pressure 99/67 03/23/25 23:02 Pulse Oximetry 100 03/23/25 23:15 Oxygen Delivery Method Room Air 03/23/25 19:30 Medications Administered Medications: Generic Name Dose Route Start Last Admin Trade Name Freq PRN Reason Stop Dose Admin Lorazepam 1 mg 03/23/25 20:39 03/23/25 21:04 Lorazepam 2 Mg/Ml Inj IVP 1 mg Q6H PRN Administration Agitation Discontinued Medications Generic Name Dose Route Start Last Admin Trade Name Freq PRN Reason Stop Dose Admin Sodium Chloride 500 mls @ 500 mls/hr 03/23/25 21:10 03/23/25 22:38 0.9 % Sodium Chloride 500 Ml IV 03/23/25 22:09 Infused .Q1H ONE Infusion Ondansetron HCl 4 mg 03/23/25 20:14 03/23/25 19:30 Ondansetron 2 Mg/Ml Inj IVP 03/23/25 20:15 4 mg ONCE ONE Administration MDM - Psych MDM Narrative Medical decision making narrative: This patient arrives sedated after receiving Versed 5 mg in route here. She did arouse after a few hours and was cooperative and expressed concern for her son. Lab results returned with elevated blood alcohol level and presence of cocaine and marijuana in her urine drug screen. The patient did receive an IV dose of Ativan here as she was showing some agitation. She continues to rest comfortably and will need to clear the chemicals for an appropriate assessment which would likely happen in the morning. Care for this patient is therefore transferred to the overnight physician. Lab Data Labs: Lab Results 03/23/25 03/23/25 03/23/25 Range/Units 19:50 20:00 22:45 WBC 6.52 (4.50-11.00) K/uL RBC 4.04 (4.00-5.20) m/uL Hgb 12.4 (12.0-16.0) gm/dL Hct 38.0 (33.0-51.0) % MCV 94 (80-100) fL MCH 31 (26-34) pg MCHC 33 (32-36) gm/dL RDW Coeff of Dara 14.3 (11.5-15.5) % Plt Count 273 (140-440) K/uL Neut % (Auto) 53.2 (42.0-72.0) % Lymph % (Auto) 31.9 (20-44) % [place] % (Auto) 12.1 H (0.0-11.0) % Eos % (Auto) 1.8 (0.0-7.0) % Baso % (Auto) 0.8 (0.0-3.0) % Neut # (Auto) 3.47 (1.7-7.0) K/uL Lymph # (Auto) 2.08 (0.90-2.90) K/uL [place] # (Auto) 0.80 (0.00-0.90) K/UL Eos # (Auto) 0.12 (0.00-0.50) K/uL Baso # (Auto) 0.05 (0.00-0.30) K/uL Abs Immat Gran (auto) 0.01 (0.00-0.30) K/uL Imm/Tot Granulo (auto) 0.2 % Sodium 136 (135-149) mmol/L Potassium 3.3 L (3.6-5.1) mmol/L Chloride 100 (96-114) mmol/L Carbon Dioxide 24 (20-32) mmol/L Anion Gap 12 (7-15) mEq/L BUN 12 (7-30) mg/dL Creatinine 0.8 (0.5-1.5) mg/dL Estimated Creat Clear 79.09 Estimated GFR 88 ml/min Glucose 83 (60-115) mg/dL Calcium 8.9 (8.4-10.6) mg/dL Urine Color Yellow (Yellow) Urine Appearance Clear (Clear) Urine pH 5.5 (5.0-8.5) Ur Specific [place] 1.010 (1.000-1.030) Urine Protein Negative (Negative) Urine Glucose (UA) Negative (Negative) Urine Ketones Negative (Negative) Urine Blood Negative (Negative) Urine Nitrite Negative (Negative) Urine Bilirubin Negative (Negative) Urine Urobilinogen 0.2 (0.2-1.0) Ur Leukocyte Esterase Negative (Negative) Urine RBC 0-2 (0-2) Urine WBC 0-2 (0-5) Ur Squamous Epith Cells Few (None-Few) Urine Bacteria None (None) Urine HCG, Qual Negative (Negative) Salicylates < 1.0 L (1.0-10) mg/dL Urine Opiates Screen Negative (Negative) Ur Oxycodone Screen Negative (Negative) Urine Methadone Screen Negative (Negative) Acetaminophen < 10.0 (10.0-30.0) ug/mL Ur Barbiturates Screen Negative (Negative) U Tricyclic Antidepress Negative (Negative) Ur Phencyclidine Scrn Negative (Negative) Ur Amphetamines Screen Negative (Negative) U Methamphetamines Scrn Negative (Negative) U Benzodiazepines Scrn Negative (Negative) Urine Cocaine Screen POSITIVE A (Negative) U Marijuana (THC) Screen POSITIVE A (Negative) Ur Drug Screen Comment See Note Ethyl Alcohol 0.26 H (0.01-0.03) % SARS-CoV-2 (PCR) Negative SARS-CoV-2 (Negative) Influenza Type A (PCR) Negative PCR FLU A (Negative) Influenza Type B (PCR) Negative PCR FLU B (Negative) Discharge Plan Discharge Clinical Impression: Suicidal ideation Prescriptions: No Action albuterol sulfate 90 mcg/actuation HFA aerosol inhaler 1 puff INHALATION Q4H PRN Patient Comments: Inhale 1-2 Puffs by mouth every 4 hours if needed for Shortness Of Breath. aripiprazole 2 mg tablet 2 mg PO DAILY Patient Comments: TAKE ONE TABLET BY MOUTH ONE TIME DAILY venlafaxine 150 mg capsule,extended release 24hr 150 mg PO DAILY Patient Comments: TAKE ONE CAPSULE BY MOUTH ONE TIME DAILY IN THE EVENING WITH FOOD ondansetron HCl 4 mg tablet 4 mg PO Q6H Qty: 10 0RF ketorolac 10 mg tablet 10 mg PO Q8H 5 Days Qty: 15 0RF valacyclovir [Valtrex] 1 gram tablet 1,000 mg PO TID Qty: 15 2RF ketorolac 10 mg tablet 10 mg PO Q8H 5 Days Qty: 15 0RF polymyxin B sulf-trimethoprim 10,000 unit- 1 mg/mL drops 1 drp ophthalmic (eye) Q3H 7 Days Qty: 10 0RF Rx Instructions: while awake; do not exceed 6 doses in 24 hours Follow Up/Referrals: Renetta Geller MD [Primary Care Provider, Family Practice]
[2025-03-23 20:07] LABS: Hematocrit 38.0 % (33.0-51.0); Hemoglobin* 12.4 gm/dL (12.0-16.0); Immature Granulocytes Abs Auto 0.01 K/uL (0.00-0.30); Immature Granulocytes Pct Auto 0.2 %; Lymphocytes Absolute Auto 2.08 K/uL (0.90-2.90); Mean Corpuscular HGB Conc 33 gm/dL (32-36); Mean Corpuscular Hemoglobin 31 pg (26-34); Mean Corpuscular Volume 94 fL (80-100); RDW Coefficient of Variation % 14.3 % (11.5-15.5); Red Blood Count 4.04 m/uL (4.00-5.20); White Blood Count* 6.52 K/uL (4.50-11.00)
[2025-03-23 20:09] LABS: Slide Review Reflex No
[2025-03-23 20:09] LABS: Appearance Urine Clear (Clear)
[2025-03-23 20:16] LABS: Cannabinoid Screen Urine POSITIVE (Negative); Methamphetamines Screen Urine Negative (Negative); Tricyclic Antidepressant Urine Negative (Negative)
[2025-03-23 20:20] LABS: Chloride* 100 mmol/L (96-114); Potassium* 3.3 mmol/L (3.6-5.1); Sodium* 136 mmol/L (135-149)
[2025-03-23 20:23] LABS: Anion Gap 12 mEq/L (7-15); Blood Urea Nitrogen* 12 mg/dL (7-30); Carbon Dioxide* 24 mmol/L (20-32); Creatinine* 0.8 mg/dL (0.5-1.5); Est. Creatinine Clearance* 79.09; Estimated Glomerular Filt Rate 88 ml/min
[2025-03-23 20:24] LABS: Acetaminophen* < 10.0 ug/mL (10.0-30.0); Calcium* 8.9 mg/dL (8.4-10.6); Ethanol* 0.26 % (0.01-0.03); Glucose* 83 mg/dL (60-115); Salicylate* < 1.0 mg/dL (1.0-10)
[2025-03-23 20:32] LABS: Ur HCG Qualitative* Negative (Negative)
[2025-03-23] MEDS: 0.9 % SODIUM CHLORIDE 500 ML 500 ML IV (21:31)
[2025-03-23 23:30] LABS: PCR FLU A Negative PCR FLU A (Negative); PCR FLU B Negative PCR FLU B (Negative); SARS PCR* Negative SARS-CoV-2 (Negative)
[2025-03-24] VITALS (36 sets, daily range): BP systolic 99–136; BP diastolic 63–86; PULSE 66–99; RESP 11–37; O2SAT 87–98
[2025-03-24 10:19] LABS: Ethanol* < 0.01 % (0.01-0.03)
--- NOTE | 2025-03-24 11:08 | CRLHL7_ITS ---
For Patients: As a result of the Century Cures Act, medical imaging exams and procedure reports are released immediately into your electronic medical record. You may view this report before your referring provider. If you have questions, please contact your health care provider. Indication: Left wrist pain. Technique: Left wrist 3 views. Comparison: None. Findings: Bones: Alignment is normal. No acute fracture or suspicious bone lesion. Joint spaces: Mild degenerative changes of the 1st carpometacarpal joint. Soft tissues: Slight dorsal wrist soft tissue swelling. Impression: Slight dorsal wrist soft tissue swelling. If there is pain at the anatomic snuffbox, recommend conservative management with reimaging in 7-10 days. Dictated by Leonard West MD @ 03/24/2025 11:51:49 AM (Electronically Signed)
== END 2025-03-24 11:55 ==
PROVIDERS: Emergency Medicine Emergency Medical Services; Family Medicine; Emergency Provider Family Medicine; PCP Family Medicine
DX: R45.851 Suicidal ideations (principal); F10.129 Alcohol abuse with intoxication, unspecified; F14.90 Cocaine use, unspecified, uncomplicated; F12.90 Cannabis use, unspecified, uncomplicated
CPT/HCPCS: 36415; 73110; 80048; 80143; 80179; 80306; 81001; 81025; 82077; 85025; 87631; 96361; 96374; 96375; 99284; 99285; J2060; J2405; J7030

== ENCOUNTER 2025-03-24 11:58 | Outpatient (CLI) | payer OTHER, MEDICAID, SELFPAY | END 2025-03-24 11:59 | disposition home or self-care (01) | LOC: AMB 03-26 13:54 | PROVIDERS: PCP Family Medicine; Visit Provider Family Medicine | DX: R45.851 Suicidal ideations (principal) | CPT/HCPCS: A0425; A0428 ==

== ENCOUNTER 2025-06-19 06:48 | Emergency (ER) | payer OTHER, MEDICAID, SELFPAY ==
--- OUTSIDE RECORDS SUMMARY | 2025-06-19 06:50 | XMS_ITS | Clinical Summary ---
Author Organization [facility] Address [address] [place] [address] Care Team Providers Care Information Technology Project Manager Name Role Phone Renetta Geller MD Primary Care Provide r Allergies No known active allergies Medications inhalational spacing deviceIndications :Acute bronchitis with bronchospasm For home use. 1 Each 3 Active albuterol HFA (PRO-AIR; VENTOLIN; PROVENTIL) 90 mcg/actuation inhalerIndication s:Acute bronchitis with bronchospasm Inhale 1 Puff by mouth every 4 hours if needed for Shortness Of Breath or Wheezing. 8.5 g 1 4 Active omeprazole 20 mg Delayed-Release capsuleIndication s:Abdominal pain, epigastric Take 1 Capsule (20 mg) by mouth once daily before a meal. Take 30 minutes prior to a meal 60 Capsule 3 5 Active venlafaxine (EFFEXOR XR) 150 mg Extended-Release capsuleIndication s:Major depressive disorder, recurrent, moderate (HC) Take 1 Capsule (150 mg) by mouth once daily with evening meal. 90 Capsule 3 5 Active naltrexone (REVIA) 50 mg tabletIndications :Alcohol dependence, binge pattern (HC) Take 1 Tablet (50 mg) by mouth once daily. 90 Tablet 3 5 Active venlafaxine (EFFEXOR XR) 75 mg cp24 Extended-Release capsuleIndication s:Major depressive disorder, recurrent, moderate (HC) Take 1 capsule daily with a 150 mg cap for total daily dose of 225 mg daily. 30 Capsule 5 5 Active Hospital, Clinic, or Other Facility Administered Medication [...] Encounters Date Type Department Care Team Description 06/14/2025 Nurse Triage [facility] [address] [place] [address] Renetta Geller MD Tooth Ache 06/03/2025 1:00 PM CHEMIST PROTEINS Ancillary Procedure [facility] [address] [place] [address] 06/03/2025 Travel 05/31/2025 Nurse Triage [facility] [address] [place] [address] Renetta Geller MD Mouth Problem 05/26/2025 10:45 AM CHEMIST PROTEINS Telemedicine [facility] [address] [place] [phone] Genesis Brady MD Initial Psychiatry Virtual Visit; Establish Care; Telehealth 05/26/2025 Telephone [facility] [address] [place] [phone] Genesis Brady MD Care Coordination (SHAWN) 05/26/2025 Medical Messaging [facility] [address] [place] [address] Renetta Geller MD Knee replacement surgery 05/26/2025 Travel 05/12/2025 1:20 PM CDT Telemedicine [facility] [address] [facility] [place] [address] Jerrica Chase PA Telehealth (Knee Pain. Follow up. Bruising and more difficult more to walk. ) 05/11/2025 2:45 PM CDT Ancillary Procedure [facility] [address] [place] [address] 05/11/2025 2:20 PM CDT Office Visit [facility] [address] [place] [address] Claudia Mir MD Knee Pain/problem (Left knee pain after getting out of bed and twisting it on 05/09) 05/11/2025 Travel 05/11/2025 Nurse Triage [facility] [address] [place] [address] Renetta Geller MD Knee Pain/problem 04/17/2025 7:30 AM CDT Office Visit [facility] [address] [place] [address] Renetta Geller MD Hospital F/U (depression follow up, feeling better/) 04/17/2025 Travel 04/14/2025 Telephone [facility] [address] [place], [place] [phone] Renetta Geller MD Appointment 03/24/2025 Orders Only [facility] Scanner 1 scan: (1-Ord) [facility], WRIST LT MIN 3V, 03/24/2025 from Last 3 Months Immunizations Immunization Administration [...] Comments Cancer-prostate Father Cancer-colon Mother age 75 Cancer-breast Other Cousin Esophageal cancer Paternal Uncle Cancer-breast Sister Cervical cancer Sister Cancer-ovarian No Family History Relation Name Status Comments Father Mother Other Paternal Uncle Alive Sister Social History Tobacco Use Types Packs/Day Years Used Date Smoking Tobacco: Every Day Cigarettes 0.5 6.9 Started: 2018 Smokeless Tobacco: Never Tobacco Cessation:Ready to Q uit: No; Counseling Given: No Comments:10 cigs per day Alcohol Use Standard Drinks/Week Comments Yes 0 (1 standard drink = 0.6 oz pur e alcohol) 4-5 a week PHQ-2 Answer Date Recorded PHQ-2 TOTAL SCORE 3 05/26/2025 Social Connections Answer Date Recorded Do you often feel lonely or isolated from those around you? 0 06/06/2024 Alcohol Use Answer Date Recorded How often do you have a drink containing alcohol ? 3 05/26/2025 How many drinks containing a lcohol do you have on a typical day when you are drinking? 0 05/26/2025 How often do you have five or more drinks on one occasion? 3 05/26/2025 Financial Resource Strain Answer Date R ecorded [...] on file Legal Sex Female 6:16 AM CHEMIST PROTEINS Gender Identity Not on file Sexual Orientation Not on file Obstetrics History Para Term AB IAB SAB Ectopic Multiple Livin g Live Births 1 1 1 0 0 0 0 0 1 Date Outcome GA Total Labor Labor/2nd/3rd Weight Sex Type Anes PTL Erin A1 A5 Name Clin Term Last Filed Vital Signs Vital Sign Reading Time Taken Comments Blood Pressure 110/78 05/11/2025 2:35 PM CDT Pulse 102 05/11/2025 2:35 PM CDT Temperature 37 C (98.6 F) 12/12/2023 1:47 PM CDT Respiratory Rate 16 06/08/2023 10:04 AM CHEMIST PROTEINS Oxygen Saturation 99% 05/11/2025 2:35 PM CDT Inhaled Oxygen Concentration - - Weight 73.8 kg (162 lb 9.6 oz) 05/11/2025 2:35 P M CDT Height 170.2 cm (5' 7) 01/06/2025 2:11 PM CDT Body Mass Index 25.47 01/06/2025 2:11 PM CDT Plan of Treatment Health Maintenance Due Date Last Done Comments Hepatitis B series for 19+ ( 1 of 3 - 19+ 3-dose series) 12/18/1990 RSV vaccine for adults or (1 - Risk 50-74 years 1-dose series) 12/18/2021 Zoster (shingles) series for age 50+ (1 of 2) 12/18/2021 Pap test for age 21-65 09/24/2023 9, 09/23/2018, 06/26/2017, Additional history exists COVID-19 vaccine series ( season) 2025 07/14/2024, 09/17/2023, 04/28/2022, Additional history exists Influenza Vaccine (#1) 2025 , 09/17/2023, 04/28/2022, Additional history exists BMI (ht and wt on same day) for age 18+ 01/06/2026 01/06/2025, 11/07/2022, 04/28/2022, Additional history exists Depression screening for age 12+ 05/26/2026 05/26/2025, 04/17/2025, 01/07/2025, Additional history exists Mammogram for age 45-75 06/03/2026 06/03/20, 06/12/2022, 02/22/2021, Additional history exists Lipids for age 45-75 04/28/2027 04/28/2022, 05/10/2017, 08/16/2006, Additional history exists Colonoscopy through age 75 11/28/202711/27, 10/01/2018, 10/01/2018, Additional history exists Tetanus booster 02/17/2031 02/17/2021, 11/20, 04/06/2004 Hepatitis C screening for ag e 18-79 Completed 02/17/2021, 09/28/2020, 02/26/2020, Additional history exists HIV for age 15-65 Completed 02/22/2023, , 11/01/2021, Additional history exists Pneumococcal series for age 50+ Completed 4 Procedures Procedure Name Priority Date/Time Associated Diagnosis Comments XR MAMMO VANCE BILAT SCREEN Routine 06/03/2025 1:20 PM CHEMIST PROTEINS Visit for screening mammogram XR KNEE 3 VIEWS LEFT Routine 05/11/2025 2:55 PM CDT Acute pain of left knee SCAN-RADIOLOGY REPORT 03/24/2025 12:00 AM CDT LC HIV-1/O/2, 4TH GENERATION Routine 02/22/2023 8:23 AM CDT Screening for STDs (sexually transmitted diseases) COLONOSCOPY 11/27/2022 2:15 PM CDT LIPID PANEL W REFLEX MEASURED LDL Routine 04/28/2022 9:17 AM CDT Lipid screening ANTI HCV Routine 02/17/2021 10:07 AM CDT Screening examination for STD (sexually transmitted disease) [employer] THIN PREP PAP SCREEN IMAGED Routine 09/23/2018 12:00 PM CHEMIST PROTEINS from Last 3 Months or Most Recently Relevant to Health Maintenance Results * XR MAMMO VANCE BILAT SCREEN (06/03/2025 1:20 PM CHEMIST PROTEINS) Anatomical Region Laterality Modality BREASTS, Breast Left, Breast Right Bilateral Mammography Impressions 06/03/2025 3:52 PM CHEMIST PROTEINS There is no radiographic evidence for malignancy. Recommend annual mammograms. MAMMOGRAM ASSESSMENT: ACR 1 Negative PATIENTS: You will also receive a letter with your examination results in an easy to read format. If you have questions about your results, please contact your referring provider. Narrative 06/03/2025 3:52 PM CHEMIST PROTEINS For Patients: As a result of the Cures Act, medical imaging exams and procedure reports are released immediately into your electronic medical record. You may view this report before your referring provider. If you have questions, please contact your health care provider. XR MAMMO VANCE BILAT SCREEN [[id number]] CLINICAL HISTORY: This is an asymptomatic 54 y.o. patient. INDICATION FOR EXAM: Mammogram Screening. TECHNIQUE: CC and MLO views were obtained. This study was evaluated with the assistance of Computer-Aided Detection. Breast Tomosynthesis was used in interpretation. COMPARISON FILM: Yes 06/12/22 [facility] 02/22/21 [facility] FINDINGS: There are scattered areas of fibroglandular density. There are no dominant masses, suspicious micro calcifications or areas of architectural distortion. us Renetta Geller MD MAMMO Final Result * XR KNEE 3 VIEWS LEFT (05/11/2025 2:55 PM CDT) Anatomical Region Laterality Modality KNEES, KNEE L Computed Radiogr aphy 05/12/2025 3:14 PM CDT Narrative 05/12/2025 3:14 PM CDT For Patients: As a result of the Cures Act, medical imaging exams and procedure reports are released immediately into your electronic medical record. You may view this report before your referring provider. If you have questions, please contact your health care provider. Indication: Acute pain of left knee Technique: Left knee 3 views Comparison: None Findings: Tricompartmental degenerative spurring with narrowing at the lateral facet of the patellofemoral joint. Small suprapatellar joint effusion. Chronic distal quadriceps tendinosis. No fracture. Impression: Tricompartmental degenerative joint disease. Dictated by Trevon Pelaez MD @ 05/12/2025 3:14:50 PM (Electronically Signed) Procedure Note Trevon Pelaez MD - 05/12/2025 For Patients: As a result of the Cures Act, medical imagingexams and procedure reports are released immediately into your electronicmedical record. You may view this report before your referring provider.If you have questions, please contact your health care provider. Indication: Acute pain of left knee Technique: Left knee 3 views Comparison: None Findings: Tricompartmental degenerative spurring with narrowing at the lateral facetof the patellofemoral joint. Small suprapatellar joint effusion. Chronicdistal quadriceps tendinosis. No fracture. Impression: Tricompartmental degenerative joint disease. Dictated by Trevon Pelaez MD @ 05/12/2025 3:14:50 PM (Electronically Signed) us Claudia Mir MD GENERAL IMAGING Final R esult * SCAN-RADIOLOGY REPORT (03/24/2025 12:00 AM CDT) Anatomical Region Laterality Modality Other us Scanner OTHER Final Result * LC HIV-1/O/2, 4TH GENERATION (02/22/2023 8:23 AM CDT) [facility] HIV Scr 4th Gen Non Reactive Non Reactive 02/24/2023 11:08 AM CDT [facility]) Comment: HIV Negative HIV-1/HIV-2 antibodies and HIV-1 p24 antigen were NOT detected. There is no laboratory evidence of HIV infection. Blood BLOOD SPECIMEN / Unknown Venipuncture / Unknown 02/22/2023 8:23 AM CDT 02/22/2023 8:23 AM CDT Narrative [facility] ([facility]) - 02/24/2023 11:08 AM CDT Performed at: [address] [place] [id number] Sand Cleaning Machine Operator: Brock Park MD, Phone: [phone] us [facility] Final Result [facility] ([facility]) [address] [place] [id number], * COLONOSCOPY (11/27/2022 2:15 PM CDT) 11/27/2022 [...] Time 0 hours 6 minutes 11 seconds Sreekanth Young MD PROCEDURE ORD Final Res ult * LIPID PANEL W REFLEX MEASURED LDL (04/28/2022 9:17 AM CDT) CHOLESTEROL,TOTAL 174 100 - 199 mg/dL 04/29/2022 7:56 AM CDT [facility] TRIGLYCERIDES 62 <150 mg/dL 04/29/2022 7:56 AM CDT [facility] HDL CHOLESTEROL 66 >40 mg/dL 7:56 AM CDT [facility] NON-HDL CHOLESTEROL 108 <145 mg/dl 04/29/2022 7:56 AM CDT [facility] CHOL/HDL RATIO 2.64 <4.50 04/29/2022 7:56 AM CDT [facility] LDL CHOLESTEROL 96 <=130 mg/dL 04/29/2022 7:56 AM CDT [facility] VLDL CHOLESTEROL 12 <=30 mg/dL 04/29/2022 7:56 AM CDT [facility] PROVIDER ORDERED STATUS RANDOM 04/29/2022 7:56 AM CDT [facility] Blood BLOOD SPECIMEN / Unknown Venipuncture / Unknown 04/28/2022 9:17 AM CDT 04/28/2022 9:17 AM CDT Kimberly Steel MD CHEMISTRY Final Resul t [facility] [address] [place] [address], [place] [facility] [address] [place] [address], * ANTI HCV (02/17/2021 10:07 AM CDT) HEPATITIS C ANTIBODY Non-React brenna Non-React brenna 02/17/2021 5:05 PM CDT [facility] Comment:Antibodies to HCV no t detected; does not exclude the possibility of exposure to HCV. Blood BLOOD SPECIMEN / Unknown Venipuncture / Unknown 02/17/2021 10:07 AM CDT 02/17/2021 10:09 AM CDT Renetta Geller MD SEND OUTS Final Result [facility] [address] [place] [address], [place] * [employer] C[employer]TER THIN PREP PAP SCREEN IMAGED (09/23/2018 12:00 PM CHEMIST PROTEINS) Case Report Gynecologic Cytology Report Case: [id number] Authorizing Provider: Amelia Nichols Collected: 09/23/2018 1200 MMD Ordering Location: [facility] Received: 09/25/2018 1335 First Screen: Anitha Giang Specimen: FIREWOOD CUTTER ThinPrep Vial Screening, Cervical/Vaginal 09/30/2018 10:23 AM CDT [facility] INTERPRETATION/ RESULT NEGATIVE FOR INTRAEPITHELIAL LESION OR MALIGNANCY (NIL) (none) 09/30/2018 10:23 AM CDT [facility] at 1023 CDT SPECIMEN ADEQUACY Satisfactory for evaluation Endocervical component present 09/30/2018 10:23 AM CDT [facility] [employer] [facility]TRAL LABORATORY HPV REQUEST HPV and PAP 09/30/2018 10:23 AM CDT [facility] Date of LMP 08/23/2018 09/30/2018 10:23 AM [facility] EN[facility] Last Pap Result First Pap/Unknown 10:23 AM [facility] Automated Review Successful 09/30/2018 10:23 AM [facility]TR[facility] LAB[facility]ATORY Comment:Specimen processed s uccessfully by automated bench examiner device, StemPathPrep Imaging System, [employer] ANCILLARY TESTING [employer]RE[employer]OD CUTTER HPV Ordered, Please see separate report 09/30/2018 10:23 AM [facility] Note The pap test is a [...] lesions. Cytology is screened and interpreted at [facility] - [address], [place] [address] and [facility] - [address]; [place] [address] and [facility] - [address]; [place] [address] and [facility] [address]; [place] [address] 09/30/2018 10:23 AM [facility] Other (Cervical/Vagina l) 09/23/2018 12:00 PM CHEMIST PROTEINS 09/25/2018 1:35 PM CHEMIST PROTEINS us Amelia Nichols MD PATHOLOGY/CYTOLOGY Final Result [facility] [address] [place] [address], [place] from Last 3 Months or Most Recently Relevant to Health Maintenance Insurance [place] [address] [facility] Advance Directives * Full Code (Latest Code [...] Preferences, Provider to review later Care Teams Information Technology Project Manager Relationship Specialty Start Date End Date Renetta Geller MD [address] [place] [address] PCP - General 08/09/06
--- OUTSIDE RECORDS SUMMARY | 2025-06-19 06:50 | XMS_ITS | Encounter Summary ---
Author Organization [facility] Address [address] [place] [address] Care Team Providers Care Cardiothoracic Surgeon Name Role Phone No Primary/Referring, Phy Primary Care Provider Unavailable Encounter Details Date Type Department Care Team (Late st Contact Info) Description 06/04/2019 [facility] RH USE OF RESTRAINTS/ALTERNATIVES PATIENT/FAMILY ED Social History Tobacco Use Types Packs/Day Years Used Date Smoking Tobacco: Every Day Smokeless Tobacco: Never Alcohol Use Standard Drinks/Week Comments Yes 0 (1 standard drink = 0.6 oz pur e alcohol) Comments Unknown Sex and Gender Information Value Date Recorded Sex Assigned at Not on file Legal Sex Female 8:37 PM CDT Gender Identity Not on file Sexual Orientation Not on file documented as of this encounter Plan of Treatment Not on file documented as of this encounter Visit Diagnoses Not on filedocumented in this encounter Care Teams Cardiothoracic Surgeon Relationship Specialty Start Date End Date No Primary/Referring, Mohit PCP - General 05/05/19 documented as of this encounter
--- OUTSIDE RECORDS SUMMARY | 2025-06-19 06:50 | XMS_ITS | Encounter Summary ---
[facility] Address [address] [place] [address] Care Team Providers Care Cotton Baler Name Role Phone No Primary/Referring, Mohit Primary Care Provider Unavailable Encounter Details Date Type Department Care Team (Late st Contact Info) Description 06/04/2019 Consent for Procedure/Treatme nt [facility] Department RH INFORMED CONSENT NEUROLEPTIC MEDICATIONS Social [...] on filedocumented in this encounter Care Teams Cotton Baler Relationship Specialty Start Date End Date No Primary/ReferringMohit PCP - General 05/05/19 documented as of this encounter
--- OUTSIDE RECORDS SUMMARY | 2025-06-19 06:50 | XMS_ITS | Clinical Summary ---
Author Organization [facility] Address [address], [place] [address] Care Team Providers Care Souvenir Assembler Name Role Phone No Primary/Referring, Mohit Primary Care Provider Unavailable Source Comments You are receiving this document as you are listed as the primary care provider,follow-up provider, or the patient has been referred to you for consultation.This is in compliance with the Medicare and[facility] EHR Incentive Program,which states Providers who transition their patient to another setting of careor provider of care or refers their patient to another provider of care shouldprovide summary care record for each transition of care or referral. [facility] Allergies No known active allergies Medications venlafaxine (EFFEXORXR) 150 MG 24 hour release capsule Take 1 Capsule (150 mg) by mouth daily. 03/14/2025 Active ARIPiprazole (ABILIFY) 2 MG tablet Take 1 Tablet (2 mg) by mouth daily at bedtime. 30 Tablet 2 03/27/2025 Active naltrexone (REVIA) 50 MG tablet Take 1 Tablet (50 mg) by mouth daily. 15 Tablet 04/13/2025 Active Active Problems Problem Noted Date Diagnosed Date Other specified depressive episodes 03/26/2025 Alcohol use disorder, severe, dependence 025 Cannabis use disorder, severe, dependence 2024 Gambling problem 03/26/2025 Borderline personality disorder 03/26/2025 History of posttraumatic stress disorder (PTSD) 03/26/2025 Problem related to housing and economic circumst ances 03/26/2025 Severe episode of recurrent major depressive disorder, [...] in 5 years Tobacco use disorder 11/25/2009 Encounters Date Type Department Care Team Description 04/13/2025 Telephone [facility] [address] [phone] Claudia Dos Santos MD Med Change Request 03/24/2025 2:00 PM CDT - 03/27/2025 10:00 AM CDT Hospital Encounter [facility] [address] [phone] Claudia Dos Santos MD Discharge Disposition: Home from Last 3 Months Social History Tobacco Use Types Packs/Day Years Used Date Smoking Tobacco: Every Day Smokeless Tobacco: Never Alcohol Use Standard Drinks/Week Comments Yes 0 (1 standard drink = 0.6 oz pur e alcohol) Humiliation, Afraid, Rape, and Kick questionnair e Answer Date Recorded Within the last year, have y ou been afraid of your partner or ex-partner? No 03/24/2025 Within the last year, have y ou been humiliated or emotionally abused in other ways by your partner or ex-partner? No Within the last year, have y ou been kicked, hit, slapped, or otherwise physically hurt by your partner or ex-partner? No 03/24/2025 Within the last year, have y ou been raped or forced to have any kind of sexual activity by your partner or ex-partner? No 03/24/2025 Hunger Vital Sign Answer Date Recorded Within the past 12 months, y ou worried that your food would run out before you got the money to buy more. Sometimes true Within the past 12 months, t he food you bought just didn't last and you didn't have money to get more. Sometimes true 08/2024 PRAPARE - Transportation Answer Date Re corded In the past 12 months, has l ack of transportation kept you from medical appointments or from getting medications? No 08/2024 In the past 12 months, has l ack of transportation kept you from meetings, work, or from getting things needed for daily living? No 03/24/2025 Housing Stability Vital Sign Answer Edgar e Recorded In the last 12 months, was t here a time when you were not able to pay the mortgage or rent on time? No 03/24/2025 In the past 12 months, how m any times have you moved where you were living? 0 03/24/2025 At any time in the past 12 m [facility], were you homeless or living in a custodial (including now)? No 03/24/2025 [facility] Utilities Answer Date Recorded In the past 12 months has th e electric, gas, oil, or water company threatened to shut off services in your home? No 03/24/2025 Comments Unknown Sex and Gender Information Value Date Recorded Sex Assigned at Not on file Legal Sex Female 8:37 PM CDT Gender Identity Not on file Sexual Orientation Not on file Last Filed Vital Signs Vital Sign Reading Time Taken Comments Blood Pressure 145/90 03/27/2025 8:00 AM CDT Pulse 71 03/27/2025 8:00 AM CDT Temperature 36.3 C (97.4 F) 03/27/2025 8:00 AM CDT Respiratory Rate 18 03/27/2025 8:00 AM CDT Oxygen Saturation 98% 03/26/2025 7:00 PM CDT Inhaled Oxygen Concentration - - Weight 69.9 kg (154 lb) 03/26/2025 7:44 AM CDT Height 170.2 cm (5' 7.01) 03/26/2025 7:44 AM CD T Body Mass Index 24.11 03/26/2025 7:44 AM CDT Plan of Treatment Health Maintenance Due Date Last Done Comments Cervical Cancer Screening Due 1971 Colon Cancer Screening Plan Due 1970 Hep C Screening (Preventive Services) 1970 Adult Preventive Visit 12/18/1989 HepB Vaccine (1) 12/18/1990 Cholesterol 12/18/2016 Zoster/Shingles Vaccine (1 of 2) 12/18/2021 Mammogram 06/12/2023 06/12/2022, 08/0 09/2020, 08/16/2018, Additional history exists COVID-19 Vaccine (4 - 2024- season) 2025 07/14/2024, 09/17/2023, 04/28/2022 Influenza Vaccine (#1) 2025 , 04/28/2022, 10/01/2020, Additional history exists DTaP/Tdap/Td Vaccine (3 - Tdap) 02/17/2031 02/17/2021, 11/29/2010 RSV Vaccine (1 - 1-dose 75+ series) 12/18/2046 HIV Screening (Preventive Services) Completed 04/28/2022 Pneumococcal Vaccine 50+ Yrs Completed 09/17/2023 HepA Vaccine Aged Out No longer eligi [...] patient's age to complete this topic Insurance [facility] Advance Directives * Full Code (Latest Code Status on File) Date Activated Date Inactivated Comments 03/24/2025 3:25 PM 03/27/2025 12:41 PM * Full Code Date Activated Date Inactivated Comments 06/04/2019 11:19 PM 06/10/2019 7:14 PM * Full Code Date Activated Date Inactivated Comments 05/06/2019 2:22 AM 05/09/2019 5:08 PM Care Teams Souvenir Assembler Relationship Specialty Start Date End Date No Primary/Referring, Phy PCP - General 05/05/19
--- OUTSIDE RECORDS SUMMARY | 2025-06-19 06:50 | XMS_ITS | Encounter Summary ---
Author Organization [facility] Address [address] [place] [address] Care Team Providers Care Ocean Export Coordinator Name Role Phone No Primary/Referring, Mohit Primary Care Provider Unavailable Encounter Details Date Type Department Care Team (Late st Contact Info) Description 05/05/2019 Consent for Procedure/Treatme nt [facility] Department RH INFORMED CONSENT NEUROLEPTIC MEDICATIONS Social [...] on filedocumented in this encounter Care Teams Ocean Export Coordinator Relationship Specialty Start Date End Date No Primary/ReferringMohit PCP - General 05/05/19 documented as of this encounter
[2025-06-19 06:53] VITALS: BP 115/73; PULSE 98; RESP 16; TEMP 36.6; O2SAT 99; BMI 25.7
--- NOTE | 2025-06-19 07:26 | CRLHL7_ITS ---
For Patients: As a result of the Century Cures Act, medical imaging exams and procedure reports are released immediately into your electronic medical record. You may view this report before your referring provider. If you have questions, please contact your health care provider. INDICATION: Right-sided facial pain. Recent right mandibular dental extraction. COMPARISON: None. TECHNIQUE: CT of the facial bones without contrast. Multiplanar axial, coronal, and sagittal reformats were reconstructed. Contrast: None. FINDINGS: BONES: No fractures. No focal bone lesions. Normal temporomandibular joint alignment. ORBITS AND GLOBES: Right eye: Normal shape and position of globe. The lens is orthotopically located. No retrobulbar hematoma. The extraocular muscles have a normal course and caliber without signs of entrapment. Left eye: Normal shape and position of globe. The lens is orthotopically located. No retrobulbar hematoma. The extraocular muscles have a normal course and caliber without signs of entrapment. TEMPORAL BONES: The mastoids and middle ears are clear. PARANASAL SINUS: There is some mild mucosal thickening in the maxillary sinuses. The nasal septum is not deviated. SOFT TISSUES: No soft tissue swelling. No soft tissue mass. No foreign body. Normal appearance of the parotid and salivary glands. DENTITION: Thin periapical lucencies around the left maxillary 1st and 2nd premolars. Dental caries in the left mandibular 2nd premolar without periapical lucency. Dental caries in the right maxillary 2nd premolar. There are a few missing teeth including what might be a recent right molar extraction site. IMPRESSION: Recent right mandibular molar dental extraction. No associated abscess seen, although there are some limitations without IV contrast. Other multifocal dental disease as above. Discussed with Dr. Zaragoza at 7:54 a.m. on 06/19/2025. Please note that all CT scans at this facility use dose modulation, iterative reconstruction, and/or weight-based dosing when appropriate to reduce radiation dose to as low as reasonably achievable. Dictated by Katey Stanley MD @ 06/19/2025 7:54:16 AM (Electronically Signed)
[2025-06-19 07:51] LABS: Hematocrit* 38.1 % (33.0-51.0); Hemoglobin* 12.2 gm/dL (12.0-16.0); Immature Granulocytes Abs Auto 0.01 K/uL (0.00-0.30); Immature Granulocytes Pct Auto 0.1 %; Lymphocytes Absolute Auto 2.65 K/uL (0.90-2.90); Mean Corpuscular HGB Conc 32 gm/dL (32-36); Mean Corpuscular Hemoglobin 30 pg (26-34); Mean Corpuscular Volume 94 fL (80-100); RDW Coefficient of Variation % 13.4 % (11.5-15.5); Red Blood Count* 4.04 m/uL (4.00-5.20); Slide Review Reflex No; White Blood Count* 7.13 K/uL (4.50-11.00)
--- NOTE | 2025-06-19 08:11 | ED.DENTAL ---
HPI - Dental/Oral General Date Seen: 06/19/25 Chief complaint: Dental/Oral/Mouth Injury/Pain Stated complaint: tooth pain, swelling Time Seen by Provider: 06/19/25 07:05 Source: patient, RN notes reviewed and old records reviewed Mode of arrival: ambulatory Limitations: no limitations History of Present Illness HPI Narrative: This pleasant lady presents here with right-sided upper and lower tooth pain. This came on acutely at approximately 1 tonight. Before that she did have any tooth pain at all, she had an extraction done on 06/12, by her dentist on the bottom, mandibular region. She says she has known carious teeth on the top, but will have to undergo a general anesthetic to have these removed. She does remember doing anything to cause the pain, she is on antibiotics 875 mg of amoxicillin once a day, but on reading her bottle she should have been taking this twice daily. She did take some ibuprofen before she came in. Denies a fevers chills denies any problems with mouth opening, she says the pain is terrible and she is crying on the right side of her face up into her jaw region. She says she is worried about encephalitis. Related Data Home Medications ?Medication ?Instructions ?Recorded ?Confirmed albuterol sulfate 90 mcg/actuation 1 puff inhalation Q4H PRN 09/25/22 06/19/25 aerosol inhaler venlafaxine 150 mg 150 mg PO DAILY 09/25/22 06/19/25 capsule,extended release 24 hr naltrexone 50 mg tablet 50 mg PO DAILY 05/13/25 06/19/25 amoxicillin 875 mg tablet 875 mg PO BID 06/19/25 06/19/25 Previous Rx's ?Medication ?Instructions ?Recorded polymyxin B sulfate 10,000 1 drp ophthalmic (eye) Q3H 7 days 07/17/23 unit-trimethoprim 1 mg/mL eye drops #10 mL valacyclovir 1 gram tablet 1,000 mg PO TID #15 tabs 07/17/23 (Valtrex) ibuprofen 800 mg tablet 800 mg PO Q8H PRN pain #20 tabs 06/05/25 amoxicillin 875 mg tablet 875 mg PO BID #10 tabs 06/19/25 ketorolac 10 mg tablet 10 mg PO Q8H 4 days #12 tabs 06/19/25 Allergies Allergy/AdvReac Type Severity Reaction Status Date / Time No Known Drug Allergies Allergy Verified 06/19/25 07:02 Review of Systems Status of ROS: Reports: 10 or more systems reviewed and unremarkable except as noted in History and [facility] Arthritis ?M19.90 - Unspecified osteoarthritis, unspecified site (ICD-10) Adenomatous colon polyp ?D12.6 - Benign neoplasm of colon, unspecified (ICD-10) Moderate episode of recurrent major depressive disorder ?F33.1 - Major depressive disorder, recurrent, moderate (ICD-10) BONNIE (generalized anxiety disorder) ?F41.1 - Generalized anxiety disorder (ICD-10) Alcohol abuse ?F10.10 - Alcohol abuse, uncomplicated (ICD-10) Gastritis ?K29.70 - Gastritis, unspecified, without bleeding (ICD-10) Polycystic ovaries ?E28.2 - Polycystic ovarian syndrome (ICD-10) Surgical History H/O ventral hernia repair ?Z98.890 - Other specified postprocedural states (ICD-10) ?Z87.19 - Personal history of other diseases of the digestive system (ICD-10) H/O section ?Z98.891 - History of uterine scar from previous surgery (ICD-10) Social History Smoking Status: Current some day smoker What tobacco products do you use: cigarettes How often do you have a drink containing alcohol: 4 or more times a week How many standard drinks containing alcohol do you have on a typical day: 3 or 4 AUDIT-C Alcohol total score: 5 Non-prescribed substance use: marijuana (any form) and crack/cocaine service: No Exam Narrative: Exam Narrative: On examination in room 4, she is crying, in mild distress. Complaining of the pain on the face. Her pupils equal round reactive to light her TMs bilaterally are normal, her mouth opening is normal with normal TMJs. She has the open bottom tooth. That is draining a little bit of fluid, on her right molar region. With a little bit air also, I do not see any evidence of pointing, or suggestion of an abscess interview come mucosa along her jaw. Her top seems normal also I see no evidence of an abscess there, redness or rashes. There is no lymphadenopathy anterior posterior chains her neck is supple, and there is no meningismus. Const: Vital Signs, click to edit/add: Vital Signs - 24 hr 06/19/25 06:53 Temperature 97.9 F Pulse Rate [Pulse Oximeter] 98 Respiratory Rate 16 Blood Pressure [Ri ght Upper Arm] 115/73 Pulse Oximetry 99 Oxygen Delivery Me thod Room Air Course Vital Signs Vital signs: Initial Vital Signs Temperature 97.9 F 06/19/25 06:53 Temperature Source Temporal Artery Scan 06/19/25 06:53 Pulse Rate 98 06/19/25 06:53 Respiratory Rate 16 06/19/25 06:53 Blood Pressure 115/73 06/19/25 06:53 Blood Pressure Mean 87 06/19/25 06:53 Blood Pressure Position Sitting 06/19/25 06:53 Pulse Oximetry 99 06/19/25 06:53 Oxygen Delivery Method Room Air 06/19/25 06:53 Vital Signs Temperature 97.9 F 06/19/25 06:53 Pulse Rate 98 06/19/25 06:53 Respiratory Rate 16 06/19/25 06:53 Blood Pressure 115/73 06/19/25 06:53 Pulse Oximetry 99 06/19/25 06:53 Oxygen Delivery Method Room Air 06/19/25 06:53 Temperature 97.9 F 06/19/25 06:53 Pulse Rate 98 06/19/25 06:53 Respiratory Rate 16 06/19/25 06:53 Blood Pressure 115/73 06/19/25 06:53 Pulse Oximetry 99 06/19/25 06:53 Oxygen Delivery Method Room Air 06/19/25 06:53 Medications Administered Medications: Discontinued Medications Generic Name Dose Route Start Last Admin Trade Name Freq PRN Reason Stop Dose Admin Ketorolac Tromethamine 30 mg 06/19/25 07:27 06/19/25 07:48 Ketorolac 30 Mg/Ml Inj IM 06/19/25 07:28 30 mg ONCE ONE Administration MDM - Dental/Oral MDM Narrative Medical decision making narrative: Life-threatening differential diagnosis considered include mastoiditis, and retropharyngeal abscess. Other differential diagnosis considered include dental caries, periodontal abscess, periapical abscess, parotitis, tooth avulsion, tooth fracture, gingivitis as well as other etiologies I suspect that this is related to a dry socket on the bottom, I do not think it is acute carious teeth on the bottom top. And I do not think this is a brain infection also. We did a CT of her facial region, I reviewed this with the radiologist, the tooth removal was seen there is no large abscess noted. Her CBC was also normal. She has an appointment at 8:30 a.m. in the morning with her dentist and phillip martines, which I think is a fabulous idea. She got some relief and is not crying now from the Toradol that we gave her. I offered her stronger medication but she declined. I think it be reasonable to give her small bridge prescription of amoxicillin as she has been only taking it once a day, along with some Toradol orally she can take, times 12 tablets she will not use any other NSAIDs with this. She will follow-up with her dentist for further treatment. Returning here if worsening signs and symptoms. Differential Diagnosis Differential diagnosis: Likely gingival abscess, dental caries, toothache, dental abscess, fracture of tooth and aphthous ulcer Medical Records Attestation: I reviewed the patient's medical records. Lab Data Labs: Lab Results 06/19/25 Range/Units 07:40 WBC 7.13 (4.50-11.00) K/uL RBC 4.04 (4.00-5.20) m/uL Hgb 12.2 (12.0-16.0) gm/dL Hct 38.1 (33.0-51.0) % MCV 94 (80-100) fL MCH 30 (26-34) pg MCHC 32 (32-36) gm/dL RDW Coeff of Dara 13.4 (11.5-15.5) % Plt Count 323 (140-440) K/uL Neut % (Auto) 48.7 (42.0-72.0) % Lymph % (Auto) 37.2 (20-44) % [place] % (Auto) 12.6 H (0.0-11.0) % Eos % (Auto) 1.0 (0.0-7.0) % Baso % (Auto) 0.4 (0.0-3.0) % Neut # (Auto) 3.47 (1.7-7.0) K/uL Lymph # (Auto) 2.65 (0.90-2.90) K/uL [place] # (Auto) 0.90 (0.00-0.90) K/UL Eos # (Auto) 0.07 (0.00-0.50) K/uL Baso # (Auto) 0.03 (0.00-0.30) K/uL Abs Immat Gran (auto) 0.01 (0.00-0.30) K/uL Imm/Tot Granulo (auto) 0.1 % Discharge Plan Discharge Clinical Impression: Toothache, Dental caries Condition: Improved Instructions: Toothache (ED), Tooth Extraction (DC) Additional Instructions: As I discussed with you I suspect that this is related to dry socket, on the bottom for sure. It often the clot comes out common causes the pain the dentist's have special stuff that they put in there. On the top I do not see any evidence of an abscess the CT did not show an abscess also. Your white count is also normal. Your concern for a possible brain infection is valid although very very unlikely given the above findings. I suggest the [place], falling appear dentist taking her antibiotics twice a day. Would be of be a better idea also, I have given you prescription for a few more days. Return here if you have significant swelling on the side ear face, that would suggest an abscess which we can Cristóbal here. I have given you copy of the CT to take to your dentist.No ibuprofen or Aleve with the toradol. You may take tylenol Activity Level: Light activity Prescriptions: New amoxicillin 875 mg tablet 875 mg PO BID Qty: 10 0RF ketorolac 10 mg tablet 10 mg PO Q8H 4 Days Qty: 12 0RF No Action naltrexone 50 mg tablet 50 mg PO DAILY ibuprofen 800 mg tablet 800 mg PO Q8H PRN (Reason: pain) Qty: 20 0RF albuterol sulfate 90 mcg/actuation HFA aerosol inhaler 1 puff INHALATION Q4H PRN Patient Comments: Inhale 1-2 Puffs by mouth every 4 hours if needed for Shortness Of Breath. venlafaxine 150 mg capsule,extended release 24hr 150 mg PO DAILY Patient Comments: TAKE ONE CAPSULE BY MOUTH ONE TIME DAILY IN THE EVENING WITH FOOD amoxicillin 875 mg tablet 875 mg PO BID valacyclovir [Valtrex] 1 gram tablet 1,000 mg PO TID Qty: 15 2RF polymyxin B sulf-trimethoprim 10,000 unit- 1 mg/mL drops 1 drp ophthalmic (eye) Q3H 7 Days Qty: 10 0RF Rx Instructions: while awake; do not exceed 6 doses in 24 hours Follow Up/Referrals: Renetta Geller MD [Primary Care Provider, [facility]]
--- NOTE | 2025-06-19 08:11 | ED.NURSE ---
Patient provided ice, heat for dental pain. Patient wanting to leave multiple times advised best to wait for images on CD for dentist to be able to view CT images that were captured related to her dental pain/sinus images to ensure that she is properly treated from a dental perspective. Patient reluctantly agreeable to wait. Per physician new Rx sent in to pharmacy for patient. Will attempt to coax patient into waiting for images, if not will call patient in attempt to get patient to pick images up later if unwilling to stay.
== END 2025-06-19 08:30 | disposition home or self-care (01) ==
PROVIDERS: Emergency Provider Family Medicine; PCP Family Medicine
DX: K02.9 Dental caries, unspecified (principal); K08.89 Other specified disorders of teeth and supporting structures
CPT/HCPCS: 36415; 70486; 85025; 96372; 99284; J1885